=== PATIENT | female | born 1945 | race American Indian/Alaskan Native ===

== ENCOUNTER 2018-08-01 06:36 | Inpatient (IN) | payer MEDICARE, BC ==
[2018-07-29 08:47] VITALS: BMI 30.7
[2018-08-01] MEDS ORDERED: Lidocaine 1% 5ml Abboject ONE (07:19)
[2018-08-01] MEDS ORDERED: Lidocaine 4% (Laryng-O-Jet) Kit MM ONE (07:19)
[2018-08-01] MEDS ORDERED: Neostigmine 1:1000 (1 mg/ml) Inj ONE (07:19)
[2018-08-01] MEDS ORDERED: Propofol 10 mg/ml Inj (20 ML) ONE (07:19)
[2018-08-01] MEDS ORDERED: Midazolam 2 MG/2 ML VIAL ONE (07:19)
[2018-08-01] MEDS ORDERED: Rocuronium 10 mg/ml (5 ml) ONE ×2 (07:19→09:20)
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
[2018-08-01] MEDS ORDERED: Phenylephrine 10 mg/ml Inj ONE (07:23)
[2018-08-01] MEDS ORDERED: Absorbable Gelatin Sponge Size 12-7 ONE (07:32)
[2018-08-01] MEDS ORDERED: Thrombin Topical 5,000 Int Units Spray Kit ONE (07:32)
[2018-08-01] MEDS ORDERED: Bacitracin Ointment 30 GM TUBE ONE (07:32)
--- NOTE | 2018-08-01 07:32 | CP.PCM.CON ---
History of Present Illness - History of Present Illness History of Present Illness: Orthopedic consult: Dr. Zarate Patient is a 73 y/o female who presents for elective R TKA. The patient has had chronic right knee pain for many years that has progressed over the past few months. She has had much difficulties with her daily activities including walking and climbing stairs due to the pain. Her symptoms have been resistant to conservative means with PT, oral medications and intra-articular injections. She denies radiation of pain/numbness/tingling. She does not walk with an assistive aid and lives at home with her daughter and son in a second floor apt. She denies any cardiac/thromboembolic events in the past. She takes ASA 81 mg daily, last dose 2 days ago. She denies CP/SOB/N/V/D/fever/dysuria/melena. Review of Systems - Review of Systems All systems: reviewed and no additional remarkable complaints except Review of Systems: as per HPI Past Patient History - Past Medical History & Family History Past Medical History?: Yes Past Family History: Reviewed and not pertinent - Past Social History Smoking Status: chews tobacco occassionally Alcohol: None Drugs: Denies - CARDIAC Hx Cardiac Disorders: Yes Hx Hypercholesterolemia: Yes Hx Hypertension: Yes - PULMONARY Hx Asthma: Yes Hx Chronic Obstructive Pulmonary Disease (COPD): Yes - NEUROLOGICAL Hx Neurological Disorder: No - HEENT Hx HEENT Problems: Yes Other/Comment: left eye bleeding? - RENAL Hx Chronic Kidney Disease: No - ENDOCRINE/METABOLIC Hx Endocrine Disorders: No - HEMATOLOGICAL/ONCOLOGICAL Hx Blood Disorders: Yes Hx Blood Transfusions: Yes Hx Blood Transfusion Reaction: No - INTEGUMENTARY Hx Dermatological Problems: No - MUSCULOSKELETAL/RHEUMATOLOGICAL Hx Musculoskeletal Disorders: Yes Hx Arthritis: Yes Hx Back Pain: Yes - GASTROINTESTINAL Hx Gastrointestinal Disorders: Yes Hx Gastroesophageal Reflux: Yes (heartburn) - GENITOURINARY/GYNECOLOGICAL Hx Genitourinary Disorders: No - PSYCHIATRIC Hx Psychophysiologic Disorder: No - SURGICAL HISTORY Hx Surgeries: Yes Hx Hysterectomy: Yes (partial 1967) - ANESTHESIA Hx Anesthesia: Yes Hx Anesthesia Reactions: No Hx Malignant Hyperthermia: No Has any member of the family had a problem w/ anesthesia?: No Meds Allergies/Adverse Reactions: Allergies Allergy/AdvReac Type Severity Reaction Status Date / Time No Known Allergies Allergy Verified 08/01/18 06:56 - Medications Medications: as per Med rec Physical Exam - Constitutional Appears: Well, No Acute Distress - Head Exam Head Exam: ATRAUMATIC, NORMOCEPHALIC - Eye Exam Eye Exam: EOMI, Normal appearance, PERRL - ENT Exam ENT Exam: Mucous Membranes Moist - Respiratory Exam Respiratory Exam: NORMAL BREATHING PATTERN - Extremities Exam Additional comments: R knee: no lesions/masses/erythema mild swelling, tenderness anteriorly sensation intact SP/DP/TN motor intact EHL/FHL/TA/G pedal pulses intact calves soft NT Results - Vital Signs Recent Vital Signs: Last Vital Signs Temp 98.7 F 08/01/18 07:06 Pulse 86 08/01/18 07:06 Resp 18 08/01/18 07:06 BP 125/69 08/01/18 07:06 Pulse Ox 100 08/01/18 07:06 Assessment & Plan (1) Osteoarthritis of right knee Assessment and Plan: -OR today for R TKA -Risks/benefits/alternatives d/w patient who understands and agrees to proceed w ith procedure above -NPO -above d/w Dr. Zarate in agreement Status: Acute
[2018-08-01] MEDS ORDERED: Tranexamic Acid 1,000 MG in Sodium Chloride 0.9% 100 ML IVPB ONE (07:34)
[2018-08-01] MEDS ORDERED: Succinylcholine 200 mg/10 ml Inj IV ONE (07:35)
[2018-08-01] MEDS ORDERED: Bupivacaine 0.25%-Epinephrine 1:200,000 (30 ml) Inj ONE ×2 (07:41→13:28)
[2018-08-01] MEDS ORDERED: ceFAZolin IV 1 gm in Dextrose 1 GM/50 ML BAG IVPB ONE ×2 (07:42→07:44)
[2018-08-01] MEDS ORDERED: Lactated Ringer's 1,000 ML IV ONE ×2 (07:51→11:30)
[2018-08-01 07:55] LABS: BASO % 0.8 % (0.0-2.0); EOS # 0.3 K/uL (0.0-0.7); EOS % 4.9 % (0.0-4.0); HEMOGLOBIN 10.8 g/dL (12.0-16.0); LYMPH # 1.2 K/uL (1.0-4.3); LYMPH % 19.5 % (20.0-40.0); MEAN CELL VOLUME 74.5 fl (81.0-99.0); MEAN CORPUSCULAR HEMOGLOBIN 23.6 pg (27.0-31.0); MEAN CORPUSCULAR HGB CONC 31.7 g/dL (33.0-37.0); MEAN PLATELET VOLUME 8.1 fl (7.2-11.7); MONO # 0.6 K/uL (0.0-0.8); MONO % 9.1 % (0.0-10.0); NEUT # 4.1 K/uL (1.8-7.0); NEUT % 65.7 % (50.0-75.0); NRBC % 0.1 % (0.0-0.0); RBC 4.57 Mil/uL (3.80-5.20); WHITE BLOOD COUNT 6.3 K/uL (4.8-10.8)
[2018-08-01 08:23] LABS: SQUAMOUS EPITHIAL 7 /hpf (0-5); URINE BACTERIA RARE (<OCC); URINE BILIRUBIN NEGATIVE (NEGATIVE); URINE BLOOD NEGATIVE (NEGATIVE); URINE CLARITY SLIGHTY-CLOUDY (Clear); URINE COLOR YELLOW (YELLOW); URINE GLUCOSE (UA) NEG (NEGATIVE); URINE HYALINE CAST 0-2 /hpf (0-2); URINE LEUKOCYTE ESTERASE LARGE Leu/uL (Negative); URINE PROTEIN 30 mg/dL (NEGATIVE); URINE UROBILINOGEN 0.2-1.0 mg/dL (0.2-1.0)
[2018-08-01] MEDS ORDERED: Sodium Chloride 0.9% 1,000 ML IV ONE (09:10)
[2018-08-01] MEDS ORDERED: cefTRIAXone (Rocephin) 1 gm Inj ONE (09:14)
[2018-08-01] MEDS ORDERED: Tranexamic Acid 100 mg/ml IV ONE (09:50)
[2018-08-01] MEDS ORDERED: Sevoflurane - Inhalation Anesthetic Liq (250 ml) ONE (11:38)
[2018-08-01] MEDS ORDERED: Bisacodyl 5mg EC Tab PO PRN (11:51)
[2018-08-01] MEDS ORDERED: Sodium Chloride 0.9% 1,000 ML IV SCH (12:00)
[2018-08-01] MEDS ORDERED: Ergocalciferol 50,000 Intl Units Cap PO SCH (12:00)
[2018-08-01] MEDS ORDERED: Albuterol-Ipratrop 3 mg / 0.5 (3 ml) UD INH PRN (12:01)
[2018-08-01] MEDS: HYDROmorphone 0.5 mg/0.5 ml ISec IVP PRN ×5 (12:51→22:47)
[2018-08-01] MEDS ORDERED: HYDROmorphone 0.5 mg/0.5 ml ISec ONE ×2 (12:54→13:07)
[2018-08-01] MEDS ORDERED: Lactated Ringer's 1,000 ML IV SCH (13:00)
--- NOTE | 2018-08-01 13:01 | PCM.ANESB2 ---
Popliteal Nerve Block - Popliteal Nerve Block Date of Procedure: 08/01/18 Anesthesiologist: dr. Bourgeois Pre-Procedure Diagnosis: S/P right total knee replacement Post-Procedure Diagnosis: S/P right total knee replacement Procedure Performed: Popliteal Nerve Block Right - Procedure Popliteal Nerve Block: This procedure was explained to the patient that it is for post-operative pain m anagement. Consent was obtained after a thorough discussion with the patient regarding the benefits and possible complications of local anesthetic block of the sciatic nerve at the popliteal level. The patient was brought to the operating room and standard monitors are applied. Time-out was held with the circulating nurse to confirm the correct surgery and the appropriate block. After the surgery while still under general anesthesia, patient's operative leg was gently raised and supported and the groove in between the biceps femoris and vastus lateralis muscles was carefully palpated. The skin approximately 8cm above the popliteal crease was then marked. The ultrasound transducer was then applied to the posterior thigh below the gluteal crease the sciatic nerve was visualized. After identification, the lateral portion of the thigh was prepped with Chloraprep solution. At this point, a # 21 gauge Stimuplex insulated 4 inch needle was inserted into pre-marked area and advanced in a perpendicular direction. The needle was inserted above the ultrasound transducer in-plane towards the sciatic nerve in a [id number] direction. Needle advancement was performed carefully under direct ultrasound visualization. Nerve stimulator was used and dorsiflexion of the right foot was elicited at a current of 0.3 MA. After repeated negative aspiration, 5cc of 0.25% bupivacaine with 1:200,000 epinephrine was injected and this was flowed with 20cc of 0.25% bupivacaine with 1:200,000 epinephrine. Under ultrasound guidance the local anesthetics were observed surrounding sciatic nerve . The needle was removed intact and sterile dressing was applied. The patient tolerated the popliteal nerve block well with stable vital signs and was subsequently awaken from anesthesia. Then transported to PACU.
--- NOTE | 2018-08-01 13:05 | PCM.ANESB3 ---
Femoral Nerve Block - Femoral Nerve Block Date of Procedure: 08/01/18 Anesthesiologist: Dr. Bourgeois Pre-Procedure Diagnosis: S/P right femoral nerve block Post-Procedure Diagnosis: S/P right femoral nerve block Procedure Performed: Femoral Nerve Block Right - Procedure Femoral Nerve Block: The procedure was explained to the patient that it is for the post-operative pain management. Consent was obtained after a thorough discussion with the patient regarding the benefits and possible complications of local anesthetic block of the femoral nerve at the inguinal crease area. The patient was brought to the operating room and standard monitors were applied. Time-out was held with the circulating nurse to confirm the correct surgery and the appropriate block. After the surgery while still under general anesthesia, patient was placed in supine position with fully extended lower extremities and the right groin exposed. The femoral artery was then carefully palpated. The ultrasound transducer was then applied to this area in the transverse plane and the femoral nerve was visualized lateral to the femoral artery and underneath the fascia iliaca. After thorough identification, the inguinal crease area was prepped with Chloraprep. At this point, a #22 gauge Stimuplex 2-inch needle was inserted immediately lateral to the femoral artery pulse at the inguinal crease and advanced perpendicularly. The needle was inserted to the ultrasound transducer in-plane towards the femoral nerve in a [id number] direction. Needle advancement was performed carefully under direct ultrasound visualization. Nerve stimulator was used and twitch of the quadriceps muscle was obtained at current of 0.3MA. After negative aspiration, 5cc of 0.25% bupivacaine with 1:200,000 epinephrine was injected and this was followed with 20cc of 0.25% bupivacaine with 1:200,000 epinephrine. Under ultrasound guidance the local anesthetics were observed spreading below fascia iliaca and around the femoral nerve. The needle was removed intact and sterile dressing was applied. The patient had stable vital signs, was conscious and in no apparent distress. The patient tolerated the femoral nerve block well with stable vital signs and was awaken from anesthesia. Then transported to PACU
--- NOTE | 2018-08-01 13:46 | RAD ---
Date of service: 08/01/2018 PROCEDURE: Right Knee Radiographs. HISTORY: Status post right TKA COMPARISON: None. FINDINGS: BONES: Right-sided total knee arthroplasty with expected postoperative changes seen in the adjacent soft tissues consisting of edema and subcutaneous air.. In situ drainage catheters with surrounding JOINTS: As above. JOINT EFFUSION: Small joint effusion OTHER FINDINGS: None. IMPRESSION: Right-sided total knee arthroplasty with expected the postoperative changes seen in the adjacent soft tissues consisting of edema and subcutaneous air.. In situ drainage catheters with surrounding
--- NOTE | 2018-08-01 15:44 | PCM.SURG1 ---
Surgeon's Initial Post Op Note - Surgeon's Notes Surgeon: Elliot Tube Cleaner: YANELIS De Santiago Type of Anesthesia: General Endo, Block Regional Anesthesia Administered By: Dr Bourgeois Pre-Operative Diagnosis: tricompartmental O/A L knee Operative Findings: as above- tricomaprtmentalO/A L knee. Repair patella ligament. posterior capsular contracture. lateral patella retinacular contracture. anterior and posterior synbovectomy Post-Operative Diagnosis: as above Operation Performed: L TKR. repair/reinforcment patella ligament. posterior capsular release. lateral patella release. anterior and posterior synovectomy. computer navigation Specimen/Specimens Removed: bone/cartilage/synovium Estimated Blood Loss: EBL {In ML}: 75 Blood Products Given: N/A Drains Used: Hemovac Post-Op Condition: Fair Date of Surgery/Procedure: 08/01/18 Time of Surgery/Procedure: 10:05 (time in room/anetshyeisa indcution time 0950)
[2018-08-01] MEDS: ceFAZolin 2 GM in Sodium Chloride 0.9% 100 ML IVPB SCH (17:41)
[2018-08-01 19:26] LABS: HEMOGLOBIN 10.4 g/dL (12.0-16.0); MEAN CELL VOLUME 75.2 fl (81.0-99.0); MEAN CORPUSCULAR HEMOGLOBIN 24.4 pg (27.0-31.0); MEAN CORPUSCULAR HGB CONC 32.4 g/dL (33.0-37.0); RBC 4.27 Mil/uL (3.80-5.20); WHITE BLOOD COUNT 13.7 K/uL (4.8-10.8)
[2018-08-01] MEDS: Latanoprost 0.005% Opht SOUTION OU SCH (23:55)
[2018-08-02] MEDS: ceFAZolin 2 GM in Sodium Chloride 0.9% 100 ML IVPB SCH (00:29)
[2018-08-02] MEDS: HYDROmorphone 0.5 mg/0.5 ml ISec IVP PRN ×2 (02:40→06:36)
[2018-08-02 06:28] LABS: HEMOGLOBIN 9.7 g/dL (12.0-16.0); MEAN CELL VOLUME 74.8 fl (81.0-99.0); MEAN CORPUSCULAR HGB CONC 33.5 g/dL (33.0-37.0); RBC 3.87 Mil/uL (3.80-5.20); RED CELL DISTRIBUTION WIDTH 16.2 % (11.5-14.5); WHITE BLOOD COUNT 10.9 K/uL (4.8-10.8)
[2018-08-02 06:42] LABS: CALCIUM 8.5 mg/dL (8.4-10.2)
[2018-08-02] MEDS ORDERED: Pneumococcal 23-Valent Vaccine IM ONE (07:18)
[2018-08-02] MEDS: oxyCODONE 5 mg Immediate Release Tab PO PRN (08:52)
--- NOTE | 2018-08-02 09:24 | CP.PCM.PN ---
Subjective - Date & Time of Evaluation Date of Evaluation: 08/02/18 Time of Evaluation: 09:21 - Subjective Subjective: Patient states she is having 9/10 pain in her knee. She says she had a lot of pain overnight, and the medication helps but it wears off. Denies CP/SOB/dizziness/numbness/tingling. Objective - Vital Signs/Intake and Output Vital Signs (last 24 hours): Temp Pulse Resp BP Pulse Ox 99 F 95 H 18 145/80 98 08/02/18 08:17 08/02/18 08:17 08/02/18 08:17 08/02/18 09:06 08/02/18 08:17 Intake and Output: 08/02/18 08/02/18 06:59 18:59 Intake Total 400 Output Total 50 Balance 350 - Medications Medications: Current Medications Acetaminophen (Tylenol 325mg Tab) 650 mg PO Q6 [facility] Last Admin: 08/02/18 04:00 Dose: Not Given Albuterol/Ipratropium (Duoneb 3 Mg/0.5 Mg (3 Ml) Ud) 3 ml INH RQ4 PRN PRN Reason: Shortness of Breath Aspirin (Ecotrin) 81 mg PO DAILY [facility] Atorvastatin Calcium (Lipitor) 10 mg PO HS [facility] Bisacodyl (Dulcolax) 10 mg PO HS PRN PRN Reason: Constipation Docusate Sodium (Colace) 100 mg PO BID [facility] Last Admin: 08/01/18 17:41 Dose: 100 mg Enoxaparin Sodium (Lovenox) 40 mg SC Q24H [facility]; Protocol Ergocalciferol (Drisdol 50,000 Intl Units Cap) 1 cap PO QWK [facility] Ferrous Sulfate (Feosol) 325 mg PO BID [facility] Last Admin: 08/02/18 09:07 Dose: 325 mg Furosemide (Lasix) 20 mg PO DAILY [facility] Last Admin: 08/02/18 09:06 Dose: 20 mg Sodium Chloride (Sodium Chloride 0.9%) 1,000 mls @ 80 mls/hr IV .[id number] [facility] Stop: 08/02/18 12:59 Lactated Ringer's (Lactated Ringer's) 1,000 mls @ 100 mls/hr IV .Q10H [facility] Last Admin: 08/01/18 21:15 Dose: 100 mls/hr Ketorolac Tromethamine (Toradol) 30 mg IVP Q6 [facility] Stop: 08/03/18 10:01 Latanoprost (Xalatan Opht) 1 drop OU HS [facility] Last Admin: 08/01/18 23:55 Dose: 1 drop Losartan Potassium (Cozaar) 50 mg PO DAILY [facility] Montelukast Sodium (Singulair) 10 mg PO DAILY [facility] Ondansetron HCl (Zofran Inj) 4 mg IVP Q6 PRN PRN Reason: Nausea/Vomiting Oxycodone HCl (Oxycodone Immediate Release Tab) 5 mg PO Q4H PRN PRN Reason: Pain, moderate (4-7) Last Admin: 08/02/18 08:52 Dose: 5 mg Pneumococcal Polyvalent Vaccine (Pneumovax 23 Vaccine) 0.5 ml IM .ONCE ONE Stop: 08/02/18 07:19 Spironolactone (Aldactone) 25 mg PO DAILY [facility] Tizanidine HCl (Zanaflex) 4 mg PO BID [facility] Last Admin: 08/01/18 19:37 Dose: 4 mg - Labs Labs: 08/02/18 05:25 08/02/18 05:25 - Extremities Exam Additional comments: RLE: hemovac 80cc overnight, 50cc shift prior. Left intact at this time. +ROM ankle/toes, sensation intact +DP/PT pulses calves soft NT neg homans Assessment and Plan (1) Osteoarthritis of right knee Assessment & Plan: POD#1 s/p right TKR PT/OT VTE proph d/c planning d/w Dr. Zarate, agrees with above Status: Acute (2) Acute blood loss anemia Assessment & Plan: acute on chronic s/p 1uPRBC intraop f/u labs in am Status: Acute
--- NOTE | 2018-08-02 09:52 | CP.PCM.PN ---
Subjective - Date & Time of Evaluation Date of Evaluation: 08/02/18 Time of Evaluation: 09:49 - Subjective Subjective: 73 y/o Female with PMHx of Arthritis, Glaucoma, Sleep Apnea, Asthma, COPD, HLD, and HTN was seen and evaluated POD1 elective Right Knee Replacement Surgery today with Dr. Son. Patient seen resting in chair at bedside. Patient tolerating physical therapy with minimal pain at this time. Patient reports she would like to go home and states her son would be at home to help her. Patient denies fever, nausea, vomiting, shortness of breath, abdominal pain, dysuria, polyuria or chest pain at this time. Objective - Vital Signs/Intake and Output Vital Signs (last 24 hours): Temp Pulse Resp BP Pulse Ox 99 F 95 H 18 145/80 98 08/02/18 08:17 08/02/18 08:17 08/02/18 08:17 08/02/18 09:06 08/02/18 08:17 Intake and Output: 08/02/18 08/02/18 06:59 18:59 Intake Total 400 Output Total 50 Balance 350 - Medications Medications: Current Medications Acetaminophen (Tylenol 325mg Tab) 650 mg PO Q6 [facility] Last Admin: 08/02/18 04:00 Dose: Not Given Albuterol/Ipratropium (Duoneb 3 Mg/0.5 Mg (3 Ml) Ud) 3 ml INH RQ4 PRN PRN Reason: Shortness of Breath Aspirin (Ecotrin) 81 mg PO DAILY [facility] Atorvastatin Calcium (Lipitor) 10 mg PO HS [facility] Bisacodyl (Dulcolax) 10 mg PO HS PRN PRN Reason: Constipation Docusate Sodium (Colace) 100 mg PO BID [facility] Last Admin: 08/01/18 17:41 Dose: 100 mg Enoxaparin Sodium (Lovenox) 40 mg SC Q24H [facility]; Protocol Ergocalciferol (Drisdol 50,000 Intl Units Cap) 1 cap PO QWK [facility] Ferrous Sulfate (Feosol) 325 mg PO BID [facility] Last Admin: 08/02/18 09:07 Dose: 325 mg Furosemide (Lasix) 20 mg PO DAILY [facility] Last Admin: 08/02/18 09:06 Dose: 20 mg Sodium Chloride (Sodium Chloride 0.9%) 1,000 mls @ 80 mls/hr IV .[id number] [facility] Stop: 08/02/18 12:59 Lactated Ringer's (Lactated Ringer's) 1,000 mls @ 100 mls/hr IV .Q10H [facility] Last Admin: 08/01/18 21:15 Dose: 100 mls/hr Ketorolac Tromethamine (Toradol) 30 mg IVP Q6 [facility] Stop: 08/03/18 10:01 Latanoprost (Xalatan Opht) 1 drop OU HS [facility] Last Admin: 08/01/18 23:55 Dose: 1 drop Losartan Potassium (Cozaar) 50 mg PO DAILY [facility] Montelukast Sodium (Singulair) 10 mg PO DAILY [facility] Ondansetron HCl (Zofran Inj) 4 mg IVP Q6 PRN PRN Reason: Nausea/Vomiting Oxycodone HCl (Oxycodone Immediate Release Tab) 5 mg PO Q4H PRN PRN Reason: Pain, moderate (4-7) Last Admin: 08/02/18 08:52 Dose: 5 mg Pneumococcal Polyvalent Vaccine (Pneumovax 23 Vaccine) 0.5 ml IM .ONCE ONE Stop: 08/02/18 07:19 Spironolactone (Aldactone) 25 mg PO DAILY [facility] Tizanidine HCl (Zanaflex) 4 mg PO BID [facility] Last Admin: 08/01/18 19:37 Dose: 4 mg - Labs Labs: 08/02/18 05:25 08/02/18 05:25 - Constitutional Appears: Well, Non-toxic, No Acute Distress - Head Exam Head Exam: ATRAUMATIC, NORMOCEPHALIC - Eye Exam Eye Exam: Normal appearance - ENT Exam ENT Exam: Mucous Membranes Moist - Neck Exam Neck Exam: Full ROM. absent: Lymphadenopathy - Respiratory Exam Respiratory Exam: Clear to Ausculation Bilateral, NORMAL BREATHING PATTERN. absent: Rales, Rhonchi, Wheezes - Cardiovascular Exam Cardiovascular Exam: REGULAR RHYTHM, +S1, +S2 - GI/Abdominal Exam GI & Abdominal Exam: Soft, Normal Bowel Sounds. absent: Firm, Guarding, Rigid - Extremities Exam Extremities Exam: Normal Capillary Refill Additional comments: RLE: hemovac intact, +ROM ankle/toes, sensation intact +DP/PT pulses calves soft NT neg homans - Neurological Exam Neurological Exam: Alert, Awake, Oriented x3 - Psychiatric Exam Psychiatric exam: Normal Affect, Normal Mood - Skin Skin Exam: Normal Color Assessment and Plan - Assessment and Plan (Free Text) Assessment: 73 y/o Female with PMHx of Arthritis, Glaucoma, Sleep Apnea, Asthma, COPD, HLD, and HTN was seen and evaluated POD1 elective Right Knee Replacement Surgery today with Dr. Son. Plan: Elective Total RIGHT knee replacement - acute, minimal pain, afebrile overnight - Pain management as per Orthopedics - D/C Dilaudid [employer]EL[employer] pump at this time - Completed 3 doses of Ancef (Surg Prophylaxis) - Physical Therapy- pending recommendation - continue spirometry - hemovac intact at this time Arthritis - chronic - no home meds Glaucoma - chronic, controlled - continue home meds, Latanoprost COPD/Sleep Apnea - stable Asthma - chronic, controlled - Continue home meds, Albuterol Inhaler, Montelukast Hyperlipidemia - chronic, controlled - continue home meds, Simvastatin Hypertension - chronic, controlled - continue home meds, ASA, Losartan, Spironolactone DVT Prophylaxis - Lovenox 40
--- NOTE | 2018-08-02 10:47 | CP.PCM.CON ---
History of Present Illness - History of Present Illness History of Present Illness: I WAS ASKED TO SEE AND FOLLOW THIS PATIENT BY DR NG. SHE IS A 73 YEAR OLD FEMALE WHO WAS ADMITTED YESTERDAY AND UNDERWENT A RIGHT TKR FOR OA THAT FAILED CONSERVATIVE TREATMENT. SHE ALSO HAS A HISTORY OF HYPERTENSION, HYPERLIPIDEMIA AND COPD. SHE DENIES ANY HISTORY OF CAD. SHE DID WELL WITH SURGERY AND HER ONLY COMPLAINT NOW IS SURGICAL SITE PAIN. Past Patient History - Past Medical History & Family History Past Medical History?: Yes Past Family History: Reviewed and not pertinent - Past Social History Smoking Status: chews tobacco occassionally Alcohol: None Drugs: Denies - CARDIAC Hx Cardiac Disorders: Yes Hx Hypercholesterolemia: Yes Hx Hypertension: Yes - PULMONARY Hx Asthma: Yes Hx Chronic Obstructive Pulmonary Disease (COPD): Yes - NEUROLOGICAL Hx Neurological Disorder: No - HEENT Hx HEENT Problems: Yes Other/Comment: left eye bleeding? - RENAL Hx Chronic Kidney Disease: No - ENDOCRINE/METABOLIC Hx Endocrine Disorders: No - HEMATOLOGICAL/ONCOLOGICAL Hx Blood Disorders: Yes Hx Blood Transfusions: Yes Hx Blood Transfusion Reaction: No - INTEGUMENTARY Hx Dermatological Problems: No - MUSCULOSKELETAL/RHEUMATOLOGICAL Hx Musculoskeletal Disorders: Yes Hx Arthritis: Yes Hx Back Pain: Yes - GASTROINTESTINAL Hx Gastrointestinal Disorders: Yes Hx Gastroesophageal Reflux: Yes (heartburn) - GENITOURINARY/GYNECOLOGICAL Hx Genitourinary Disorders: No - PSYCHIATRIC Hx Psychophysiologic Disorder: No - SURGICAL HISTORY Hx Surgeries: Yes Hx Hysterectomy: Yes (partial 1967) - ANESTHESIA Hx Anesthesia: Yes Hx Anesthesia Reactions: No Hx Malignant Hyperthermia: No Has any member of the family had a problem w/ anesthesia?: No Meds Allergies/Adverse Reactions: Allergies Allergy/AdvReac Type Severity Reaction Status Date / Time No Known Allergies Allergy Verified 08/01/18 06:56 - Medications Medications: Current Medications Acetaminophen (Tylenol 325mg Tab) 650 mg PO Q6 PRN PRN Reason: Fever >100.4 F Albuterol/Ipratropium (Duoneb 3 Mg/0.5 Mg (3 Ml) Ud) 3 ml INH RQ4 PRN PRN Reason: Shortness of Breath Aspirin (Ecotrin) 81 mg PO DAILY [facility] Atorvastatin Calcium (Lipitor) 10 mg PO HS [facility] Bisacodyl (Dulcolax) 10 mg PO HS PRN PRN Reason: Constipation Docusate Sodium (Colace) 100 mg PO BID [facility] Last Admin: 08/01/18 17:41 Dose: 100 mg Enoxaparin Sodium (Lovenox) 40 mg SC Q24H [facility]; Protocol Ergocalciferol (Drisdol 50,000 Intl Units Cap) 1 cap PO QWK [facility] Ferrous Sulfate (Feosol) 325 mg PO BID [facility] Last Admin: 08/02/18 09:07 Dose: 325 mg Furosemide (Lasix) 20 mg PO DAILY [facility] Last Admin: 08/02/18 09:06 Dose: 20 mg Sodium Chloride (Sodium Chloride 0.9%) 1,000 mls @ 80 mls/hr IV .[id number] [facility] Stop: 08/02/18 12:59 Lactated Ringer's (Lactated Ringer's) 1,000 mls @ 100 mls/hr IV .Q10H [facility] Last Admin: 08/01/18 21:15 Dose: 100 mls/hr Ketorolac Tromethamine (Toradol) 30 mg IVP Q6 [facility] Stop: 08/03/18 10:01 Latanoprost (Xalatan Opht) 1 drop OU HS [facility] Last Admin: 08/01/18 23:55 Dose: 1 drop Losartan Potassium (Cozaar) 50 mg PO DAILY [facility] Montelukast Sodium (Singulair) 10 mg PO DAILY [facility] Ondansetron HCl (Zofran Inj) 4 mg IVP Q6 PRN PRN Reason: Nausea/Vomiting Oxycodone HCl (Oxycodone Immediate Release Tab) 5 mg PO Q4H PRN PRN Reason: Pain, moderate (4-7) Last Admin: 08/02/18 08:52 Dose: 5 mg Spironolactone (Aldactone) 25 mg PO DAILY [facility] Tizanidine HCl (Zanaflex) 4 mg PO BID [facility] Last Admin: 08/01/18 19:37 Dose: 4 mg Physical Exam - Respiratory Exam Respiratory Exam: Clear to Auscultation Bilateral - Cardiovascular Exam Cardiovascular Exam: REGULAR RHYTHM, +S1, +S2 - Extremities Exam Additional comments: RIGHT LE WITH SURGICAL DRESSINGS LLE WITHOUT ANY EDEMA - Additional Findings Additional findings: PAT EKG WITH NST AT ECHO WITH LVEF OF 60% OR NOTES REVIEWED Results - Vital Signs Recent Vital Signs: Last Vital Signs Temp 99 F 08/02/18 08:17 Pulse 95 H 08/02/18 08:17 Resp 18 08/02/18 08:17 BP 145/80 08/02/18 09:06 Pulse Ox 98 08/02/18 08:17 - Labs Result Diagrams: 08/02/18 05:25 08/02/18 05:25 Labs: Laboratory Results - last 24 hr 08/01/18 08/01/18 08/02/18 07:20 18:14 05:25 WBC 13.7 H D 10.9 H RBC 4.27 3.87 Hgb 10.4 L 9.7 L Hct 32.1 L 29.0 L MCV 75.2 L 74.8 L MCH 24.4 L 25.0 L MCHC 32.4 L 33.5 RDW 16.0 H 16.2 H Plt Count 250 211 Sodium Potassium Chloride Carbon Dioxide Anion Gap BUN Creatinine Est GFR ( Amer) Est GFR (Non-Af Amer) Random Glucose Calcium Blood Type O POSITIVE Antibody Screen Negative Crossmatch See Detail BBK History Checked No verified bt 08/02/18 05:25 WBC RBC Hgb Hct MCV MCH MCHC RDW Plt Count Sodium 137 Potassium 3.7 Chloride 101 Carbon Dioxide 28 Anion Gap 12 BUN 20 H Creatinine 1.1 Est GFR ( Amer) 59 Est GFR (Non-Af Amer) 49 Random Glucose 130 H Calcium 8.5 Blood Type Antibody Screen Crossmatch BBK History Checked Assessment & Plan - Assessment and Plan (Free Text) Plan: CONTINUE LOSARTAN, ALDACTONE, ASPIRIN, LOVENOX, ATORVASTATIN, FUROSEMIDE AND COPD MEDS
--- NOTE | 2018-08-02 11:30 | PQF ---
PROVIDER RESPONSE TEXT: Provider was unable to determine a response for this query. REVIEWER QUERY TEXT: Asthma Specificity and Type Asthma chronic is documented in the Medical Record. Please specify the type and severity of asthma i f known. Such as: -- Mild intermittent -- Mild persistent -- Moderate persistent -- Severe persistent -- Exercise induced bronchospasm -- Cough variant asthma -- Other, please specify -- Unable to determine The patient's Clinical Indicators include: History of Asthma, COPD and Sleep Apnea. Admitted for elective Right TKR. Medication: Ethan Frankel Peak flow, Incentive Spirometry Query created by: Antonina Guallpa on 08/02/2018 6:50 AM Electronically signed by: Ean Agosto 08/02/2018 11:27 AM
--- NOTE | 2018-08-02 13:01 | OP ---
PROCEDURE DATE: 08/01/2018 PREOPERATIVE DIAGNOSIS: Severe tricompartmental osteoarthritis of the right knee with deformity. POSTOPERATIVE DIAGNOSIS: Severe tricompartmental osteoarthritis of the right knee with deformity. OPERATIVE FINDINGS: 1. Severe tricompartmental osteoarthritis of the knee, most pronounced medially. 2. Severe synovitis, anterior and posterior. 3. Posterior capsular contracture. 4. Lateral patellar retinacular contracture. OPERATIVE PROCEDURE: 1. Right total knee replacement arthroplasty with computer navigation. 2. Posterior capsular release. 3. Lateral patellar retinacular release. 4. Anterior and posterior synovectomy. 5. Computer navigation. SURGEON: Catracho Zarate MD. MARKETING PROGRAM COORDINATOR: NANDO Beckford, certified registered nursing assistant shift supervisor. SECOND MEDICAL RECORD SPECIALIST: Miller Santos PA-C. TYPE OF ANESTHESIA: General endotracheal and regional anesthesia. ANESTHESIA ADMINISTERED BY: Bg Bourgeois MD. COMPLICATIONS: No complications. DRAINS: One Hemovac drain. OPERATIVE BLOOD LOSS: 75 mL. OPERATIVE INDICATION: Radha Orr is a referral from Dr. Clemente Dos Santos who is well known to my practice, presents as a 73-year-old woman with severe osteoarthritis of the right knee, which has interfered with her walking, sleeping tolerance, and has developed a gait abnormality. The patient has been refractory to conservative approach consisting of intra-articular injection, ice, anti-inflammatory medication, weight loss, and activity modification. The possibility of mechanical failure, infection, thromboembolic disease, possibility of secondary or tertiary surgery discussed. Possibility of nerve injury, possibility of stiffness is discussed. The patient can no longer withstand the discomfort and in fact demands the operative procedure. DESCRIPTION OF PROCEDURE: After having obtained informed consent in the above fashion, after having identified side, site and procedure and a critical pause/time-out, after the satisfactory induction of the anesthetic, the patient identified as Radha Orr in the supine position with all bony prominences well-padded. The right lower extremity was prepped and free draped in the usual fashion for lower extremity surgery. The tourniquet had been applied, but was not yet inflated. After exsanguinating the limb using a 6-inch Esmarch bandage, tourniquet which had been applied was inflated to 350 mmHg. A 6-inch straight midline Insall approach was described. Skin incision was carried down through the skin and subcutaneous tissue. At the level of the prepatellar bursa, medial and lateral flaps were carefully raised. Medial arthrotomy was performed. The patella was everted. The knee was flexed. Dissection was carried around posteromedially to the direct head of the semimembranosus tendon. Anterior and posterior cruciate ligaments were excised. Medial and lateral meniscectomies were accomplished. A portion of the patellar ligament was elevated. This having been accomplished, the tibia was dislocated anteriorly and the initial osteotomy of the arthroplasty was accomplished on the tibial side. At this point, an anterior and posterior synovectomy was accomplished. The patient was found to have an extremely exuberant and inflammatory synovitis both anteriorly and posteriorly when the tibia was dislocated. Computer navigation commenced. At this point, the anterior tibial strut for the OrthAlign device was placed on the proximal and medial aspect of the tibia. The offset, defined by the posterior aspect of the anterior cruciate ligament insertion to the tibial table was measured. The sensor was applied. The accelerometer was applied, and at this point in time, computer navigation commences. The offset was measured and registered on the device. Medial malleolus was registered, lateral malleolus was registered, varus-valgus was set to 0 degrees on the mechanical axis, posterior slope set to 3 degrees. The depth was set to 12 mm below the more preserved side, there was found to be a defect medially. Tibial osteotomy was accomplished. The portion of the iliotibial band was released. The tibial osteotomy bone was removed. A portion of the iliotibial band insertion into the lateral aspect of Gerdy's tubercle was released. At this point in time, notch osteophytes and border osteophytes were debrided on the femur. The tibial plateau was replaced below the femoral condyles. The guide pin was placed above the intercondylar notch and again computer navigation was used to navigate the distal femoral cut. The accelerometer was applied. The sensor was applied, and at this point in time, computer navigation via accelerometer was again accomplished in terms of the overall alignment of the arthroplasty. With circumduction, the hip center was identified. The distal cut was set to 0 degrees varus-valgus, 0.5 degrees of flexion. The distal cut was accomplished at 10 mm, it was found to be acceptable. Anterior and posterior sizing is for a #4 femoral component. The #4 block was placed across the epicondylar axis. Anterior and posterior osteotomies were accomplished. Chamfer cuts were accomplished as well. There was found to be evidence of a posterior capsular contracture and preoperatively the patient was short of femoral extension and this was significant. The lamina veterinary medicine teacher was placed. The posterior capsular contracture was released. The posterior capsule was elevated from the posterior aspect of the femur. Rotational attitude having been found to be acceptable. The femoral trial was placed. At this point in time, the proximal tibia was prepared, guidance rotation of the tibial component of the lateral aspect of tibial condyle, mid malleolar axis and the central third of the tibial tuberosity. This having been accomplished, the proximal tibia was prepared. Trialing was accomplished with a 16 mm polyethylene. Flexion/extension gap was found to be excellent and balanced. Using a bur, osteophytes were debrided from the intercondylar notch. Great care was taken to protect neurocirculatory structures. At this point in time with the knee in extension, a lateral patellar retinacular release was accomplished. Patella girth was found to be 30 mm. Freehand patellar osteotomy was accomplished with the oscillating saw and the patella was measured for the appropriate size patellar button. The trials were placed. The patellar trial was placed. The flexion/extension balance is excellent. The patellar balance was excellent. The wound was thoroughly irrigated. The femur, tibia and patella were prepared, and at this point in time, the #4 cemented femoral component was applied. The #3 cemented tibial tray, 16 mm polyethylene ultracongruent insert and the appropriate size patella was cemented. Again, flexion/extension balance was found to be excellent. The wound was thoroughly irrigated. Hemostasis was controlled with the Aquamantys. The tourniquet is deflated. Closures in layers with #1 FiberWire and #1 Vicryl followed by 0 Vicryl, 2-0 Vicryl and brandi for skin over an 8th-inch suction Hemovac drain. Clemente Orr compression dressing and knee immobilizers applied. The patient was transferred from the operating table to the stretcher having tolerated the procedure well. The operative goal could not have been reached without the assistantship of the certified registered nursing assistant shift supervisor and the PA. Catracho Zarate MD
[2018-08-02] MEDS: Enoxaparin 40 mg Syringe SC SCH (16:31)
[2018-08-02] MEDS: Latanoprost 0.005% Opht SOUTION OU SCH (21:06)
[2018-08-03 08:25] VITALS: TEMP 98.5
--- NOTE | 2018-08-03 11:35 | CP.PCM.DIS ---
Provider - Provider Date of Admission: 08/01/18 09:51 Attending physician: Ean Agosto MD Primary care physician: Clemente Webster Consults: 08/01/18 11:51 Case Management Referral Routine Comment: Physician Instructions: Reason For Exam: Reason for Referral: Discharge Planning 08/01/18 11:54 Physician Consult Routine Comment: Consulting Provider: Catracho Zarate III Consulting Physician: Catracho Zarate III Reason for Consult: TKR 08/01/18 16:25 Cardiology Consult Routine Comment: Consulting Provider: Abimael Pimentel Consulting Physician: Abimael Pimentel Reason for Consult: postop cardiac mgmt Time Spent in preparation of Discharge (in minutes): 20 Hospital Course - Lab Results Lab Results: Micro Results 08/02/18 10:28 Urine Random Urine Culture - Final No Growth (<1,000 CFU/ML) Most Recent Lab Values WBC 10.9 K/uL (4.8-10.8) H 08/02/18 05:25 RBC 3.87 Mil/uL (3.80-5.20) 08/02/18 05:25 Hgb 9.7 g/dL (12.0-16.0) L 08/02/18 05:25 Hct 29.0 % (34.0-47.0) L 08/02/18 05:25 MCV 74.8 fl (81.0-99.0) L 08/02/18 05:25 MCH 25.0 pg (27.0-31.0) L 08/02/18 05:25 MCHC 33.5 g/dL (33.0-37.0) 08/02/18 05:25 RDW 16.2 % (11.5-14.5) H 08/02/18 05:25 Plt Count 211 K/uL (130-400) 08/02/18 05:25 MPV 8.1 fl (7.2-11.7) 08/01/18 07:20 Neut % (Auto) 65.7 % (50.0-75.0) 08/01/18 07:20 Lymph % (Auto) 19.5 % (20.0-40.0) L 08/01/18 07:20 [place] % (Auto) 9.1 % (0.0-10.0) 08/01/18 07:20 Eos % (Auto) 4.9 % (0.0-4.0) H 08/01/18 07:20 Baso % (Auto) 0.8 % (0.0-2.0) 08/01/18 07:20 Neut # (Auto) 4.1 K/uL (1.8-7.0) 08/01/18 07:20 Lymph # (Auto) 1.2 K/uL (1.0-4.3) 08/01/18 07:20 [place] # (Auto) 0.6 K/uL (0.0-0.8) 08/01/18 07:20 Eos # (Auto) 0.3 K/uL (0.0-0.7) 08/01/18 07:20 Baso # (Auto) 0.0 K/uL (0.0-0.2) 08/01/18 07:20 Sodium 137 mmol/l (132-148) 08/02/18 05:25 Potassium 3.7 MMOL/L (3.6-5.0) 08/02/18 05:25 Chloride 101 mmol/L (98-107) 08/02/18 05:25 Carbon Dioxide 28 mmol/L (22-30) 08/02/18 05:25 Anion Gap 12 (10-20) 08/02/18 05:25 BUN 20 mg/dl (7-17) H 08/02/18 05:25 Creatinine 1.1 mg/dl (0.7-1.2) 08/02/18 05:25 Est GFR ( Amer) 59 08/02/18 05:25 Est GFR (Non-Af Amer) 49 08/02/18 05:25 Random Glucose 130 mg/dL (65-105) H 08/02/18 05:25 Calcium 8.5 mg/dL (8.4-10.2) 08/02/18 05:25 25-OH Vitamin D Total 21.2 NG/ML (30.0-100.0) L 08/02/18 05:25 Urine Color Yellow (YELLOW) 08/01/18 07:20 Urine Clarity Slighty-cloudy (Clear) 08/01/18 07:20 Urine pH 5.0 (5.0-8.0) 08/01/18 07:20 Ur Specific [place] 1.026 (1.003-1.030) 08/01/18 07:20 Urine Protein 30 mg/dL (NEGATIVE) 08/01/18 07:20 Urine Glucose (UA) Neg mg/dL (NEGATIVE) 08/01/18 07:20 Urine Ketones Negative mg/dL (NEGATIVE) 08/01/18 07:20 Urine Blood Negative (NEGATIVE) 08/01/18 07:20 Urine Nitrate Negative (NEGATIVE) 08/01/18 07:20 Urine Bilirubin Negative (NEGATIVE) 08/01/18 07:20 Urine Urobilinogen 0.2-1.0 mg/dL (0.2-1.0) 08/01/18 07:20 Ur Leukocyte Esterase Large [place]/uL (Negative) 08/01/18 07:20 Urine RBC (Auto) 3 /hpf (0-3) 08/01/18 07:20 Urine Microscopic WBC 4 /hpf (0-5) 08/01/18 07:20 Ur Squamous Epith Cells 7 /hpf (0-5) H 08/01/18 07:20 Urine Bacteria Rare (<OCC) 08/01/18 07:20 Hyaline Casts 0-2 /hpf (0-2) 08/01/18 07:20 Blood Type O POSITIVE 08/01/18 07:20 Blood Type Confirm O POSITIVE 08/01/18 08:40 Antibody Screen Negative 08/01/18 07:20 Crossmatch See Detail 08/01/18 07:20 BBK History Checked No verified bt 08/01/18 07:20 - Hospital Course Hospital Course: 73 y/p female with PMH arthritis, HTN, COPD/ Asthma, dyslipidemia admitted for elective right TKR. Post op patient doing well, pain is controlled and participating with PT. Will discharge patient to TCU for physical therapy Will continue Livenox for DVt prophylaxisis Dx status post right TKR COOD/Asthma HTN Dyslipidemia Vitamin D deficiency Discharge Exam - Head Exam Head Exam: ATRAUMATIC, NORMAL INSPECTION, NORMOCEPHALIC - Eye Exam Eye Exam: EOMI, Normal appearance, PERRL Pupil Exam: NORMAL ACCOMODATION - ENT Exam ENT Exam: Mucous Membranes Moist, Normal Exam - Neck Exam Neck exam: Full Rom, Normal Inspection - Respiratory Exam Respiratory Exam: Clear to PA & Lateral, NORMAL BREATHING PATTERN. absent: Rales, Rhonchi, Wheezes - Cardiovascular Exam Cardiovascular Exam: REGULAR RHYTHM, RRR, +S1, +S2. absent: JVD - GI/Abdominal Exam GI & Abdominal Exam: Normal Bowel Sounds, Soft. absent: Distended, Guarding, Rebound, Tenderness - Rectal Exam Rectal Exam: Deferred - Extremities Exam Extremities exam: full ROM, pedal pulses present Additional comments: right knee dressing with sharifa bandage in place - Back Exam Back exam: NORMAL INSPECTION - Neurological Exam Neurological exam: Alert, CN II-XII Intact, Oriented x3, Reflexes Normal - Psychiatric Exam Psychiatric exam: Normal Affect, Normal Mood - Skin Skin Exam: Dry, Intact, Normal Color, Warm Discharge Plan - Follow Up Plan Condition: GOOD Disposition: HOME/ ROUTINE Patient education suggested?: Yes Referrals: Catracho Zarate III, MD [Staff Provider] -
[2018-08-03] MEDS: Enoxaparin 40 mg Syringe SC SCH (12:20)
[2018-08-03] MEDS: oxyCODONE 5 mg Immediate Release Tab PO PRN (12:51)
[2018-08-03 16:19] VITALS: BP 100/62; PULSE 86; RESP 18; O2SAT 100
== END 2018-08-03 16:39 | DRG 470 ==
LOC: H.OPSURG 06:36 → H.MEDSURG1 09:51
PROVIDERS: ADMIT Hospitalist; ATTEND Hospitalist
PROC: 0SRC0J9 Replacement of Right Knee Joint with Synthetic Substitute, Cemented, Open Approach (ICD-10-PCS; principal; 2018-08-01 08:30)
PROC: 3E0T3BZ Introduction of Anesthetic Agent into Peripheral Nerves and Plexi, Percutaneous Approach (ICD-10-PCS; 2018-08-01 08:30)
PROC: 3E0T3BZ Introduction of Anesthetic Agent into Peripheral Nerves and Plexi, Percutaneous Approach (ICD-10-PCS; 2018-08-01 08:30)
DX: M17.11 Unilateral primary osteoarthritis, right knee (principal); J44.9 Chronic obstructive pulmonary disease, unspecified; G47.30 Sleep apnea, unspecified; E55.9 Vitamin D deficiency, unspecified; E78.00 Pure hypercholesterolemia, unspecified; E78.5 Hyperlipidemia, unspecified; H40.9 Unspecified glaucoma; I10 Essential (primary) hypertension; K21.9 Gastro-esophageal reflux disease without esophagitis; M65.9 Synovitis and tenosynovitis, unspecified; Z79.82 Long term (current) use of aspirin; Z87.891 Personal history of nicotine dependence; Z90.710 Acquired absence of both cervix and uterus; G89.29 Other chronic pain; M54.9 Dorsalgia, unspecified; R63.4 Abnormal weight loss

== ENCOUNTER 2018-08-03 12:32 | Inpatient (IN) | payer OTHER, BC ==
[2018-07-29 08:47] VITALS: BMI 30.7
[2018-08-03 16:55] VITALS: RESP 20
[2018-08-03] MEDS ORDERED: Albuterol HFA 90 mcg/actuation (8 g) IH PRN (16:56)
[2018-08-03] MEDS ORDERED: Bisacodyl 5mg EC Tab PO PRN (16:56)
[2018-08-03] MEDS ORDERED: Ergocalciferol 50,000 Intl Units Cap PO SCH (17:00)
[2018-08-03] MEDS: oxyCODONE 5 mg Immediate Release Tab PO PRN (20:19)
[2018-08-03] MEDS: Latanoprost 0.005% Opht SOUTION OU SCH (21:25)
[2018-08-04] MEDS: oxyCODONE 5 mg Immediate Release Tab PO PRN ×6 (00:29→20:56)
--- NOTE | 2018-08-04 09:09 | CP.PCM.HP ---
<Jennifer Scott - Last Filed: 08/04/18 18:43> History of Present Illness - History of Present Illness History of Present Illness: 73 y/o Female with PMH of Arthritis, Glaucoma, Sleep Apnea, Asthma, COPD, HLD, and HTN who is POD 3 after elective total right knee replacment. After surgery patient was transfered to TCU for rehabilitation. She tolerated the procedure well. Has been participating with PT. Pain is well controlled with Medicine. Denies any chest pain, SOB, N/V/D Allergies: NKDFA Medication: see med reconciliation PMH: as mentioned above PSH: Hysterectomy at the age of 21 Social: smoking history, quit 30 years ago, social ETOH use PMD: Dr. Clemente Webster MD Spreading Machine Operator: Dr. Drea Vasquez MD Contact: [employer] [phone] Present on Admission - Present on Admission Any Indicators Present on Admission: Yes History Surgical Site Infection Following: Orthopedic Procedures (right knee replacment POD3) Past Patient History - Past Medical History & Family History Past Medical History?: Yes - Past Social History Smoking Status: Former Smoker - CARDIAC Hx Cardiac Disorders: Yes Hx Hypercholesterolemia: Yes Hx Hypertension: Yes - PULMONARY Hx Asthma: Yes Hx Chronic Obstructive Pulmonary Disease (COPD): Yes - NEUROLOGICAL Hx Neurological Disorder: No - HEENT Hx HEENT Problems: Yes Other/Comment: left eye bleeding? - RENAL Hx Chronic Kidney Disease: No - ENDOCRINE/METABOLIC Hx Endocrine Disorders: No - HEMATOLOGICAL/ONCOLOGICAL Hx Blood Disorders: Yes Hx Blood Transfusions: Yes Hx Blood Transfusion Reaction: No - INTEGUMENTARY Hx Dermatological Problems: No - MUSCULOSKELETAL/RHEUMATOLOGICAL Hx Musculoskeletal Disorders: Yes Hx Arthritis: Yes Hx Back Pain: Yes Hx Falls: No - GASTROINTESTINAL Hx Gastrointestinal Disorders: Yes Hx Gastroesophageal Reflux: Yes (heartburn) - GENITOURINARY/GYNECOLOGICAL Hx Genitourinary Disorders: No - PSYCHIATRIC Hx Psychophysiologic Disorder: No Hx Substance Use: No - SURGICAL HISTORY Hx Surgeries: Yes Hx Hysterectomy: Yes (partial 1967) Other/Comment: s/p right TKR 08/01/18 - ANESTHESIA Hx Anesthesia: Yes Hx Anesthesia Reactions: No Hx Malignant Hyperthermia: No Meds Allergies/Adverse Reactions: Allergies Allergy/AdvReac Type Severity Reaction Status Date / Time No Known Allergies Allergy Verified 08/03/18 13:54 Physical Exam - Constitutional Appears: No Acute Distress - Head Exam Head Exam: NORMAL INSPECTION - Eye Exam Eye Exam: Normal appearance - ENT Exam ENT Exam: Mucous Membranes Moist - Respiratory Exam Respiratory Exam: Clear to Auscultation Bilateral, NORMAL BREATHING PATTERN. absent: Rhonchi, Wheezes - Cardiovascular Exam Cardiovascular Exam: REGULAR RHYTHM, +S1, +S2 - GI/Abdominal Exam GI & Abdominal Exam: Normal Bowel Sounds, Soft. absent: Tenderness - Extremities Exam Additional comments: Right knee dressing intact C/D/I - Neurological Exam Neurological exam: Alert, CN II-XII Intact, Oriented x3 - Skin Skin Exam: Normal Color, Warm Results - Vital Signs Recent Vital Signs: Last Vital Signs Temp 98.9 F 08/04/18 08:06 Pulse 80 08/04/18 08:06 Resp 20 08/04/18 08:06 BP 106/65 08/04/18 08:06 Pulse Ox 99 08/04/18 08:06 Assessment & Plan - Assessment and Plan (Free Text) Assessment: 73 y/o Female with PMH of Arthritis, Glaucoma, Sleep Apnea, Asthma, COPD, HLD, and HTN who had elective Right Knee Replacement Surgery POD 3. Transferred to TCU for rehabilitation and physical therapy Plan: Elective Total RIGHT knee replacement - Pain management - OT/PT - white count trending down Arthritis - chronic - no home meds Glaucoma - chronic, controlled - continue home meds, Latanoprost COPD/Sleep Apnea - stable Asthma - chronic, controlled - Continue home meds, Albuterol Inhaler, Montelukast Hyperlipidemia - chronic, controlled - continue home meds, Simvastatin Hypertension - chronic, controlled - continue home meds, ASA, Losartan, Spironolactone DVT Prophylaxis - Lovenox 40 SC <Lora,Remy D - Last Filed: 08/04/18 23:13> Results - Vital Signs Recent Vital Signs: Last Vital Signs Temp 99.1 F 08/04/18 19:44 Pulse 71 08/04/18 19:44 Resp 20 08/04/18 19:44 BP 92/57 L 08/04/18 19:44 Pulse Ox 98 08/04/18 19:44 Attending/Attestation - Attestation I have personally seen and examined this patient.: Yes I have fully participated in the care of the patient.: Yes I have reviewed all pertinent clinical information: Yes Notes (Text): 08/04/18 23:12 Patient seen and examined with resident. Case discussed and agreed with assessment and plan of management.
--- NOTE | 2018-08-04 11:07 | CP.PCM.PN ---
Subjective - Date & Time of Evaluation Date of Evaluation: 08/04/18 Time of Evaluation: 10:45 - Subjective Subjective: Pt with minimal ppost op discomfort Objective - Vital Signs/Intake and Output Vital Signs (last 24 hours): Temp Pulse Resp BP Pulse Ox 98.9 F 80 20 106/65 99 08/04/18 09:00 08/04/18 09:01 08/04/18 09:00 08/04/18 09:01 08/04/18 09:00 - Medications Medications: Current Medications Acetaminophen (Tylenol 325mg Tab) 650 mg PO Q6 PRN PRN Reason: Fever >100.4 F Acetaminophen (Tylenol 325mg Tab) 650 mg PO Q6 PRN PRN Reason: Fever >100.4 F Albuterol (Ventolin Hfa 90 Mcg/Actuation (8 G)) 1 puff IH QID PRN PRN Reason: Shortness of Breath Aspirin (Ecotrin) 81 mg PO DAILY [facility] Last Admin: 08/04/18 09:01 Dose: 81 mg Atorvastatin Calcium (Lipitor) 10 mg PO HS [facility] Last Admin: 08/03/18 21:24 Dose: 10 mg Bisacodyl (Dulcolax) 10 mg PO HS PRN PRN Reason: Constipation Docusate Sodium (Colace) 100 mg PO BID [facility] Last Admin: 08/04/18 09:00 Dose: 100 mg Ergocalciferol (Drisdol 50,000 Intl Units Cap) 1 cap PO QWK [facility] Ferrous Sulfate (Feosol) 325 mg PO BID [facility] Last Admin: 08/04/18 09:01 Dose: 325 mg Furosemide (Lasix) 20 mg PO DAILY [facility] Last Admin: 08/04/18 09:00 Dose: 20 mg Latanoprost (Xalatan Opht) 1 drop OU HS [facility] Last Admin: 08/03/18 21:25 Dose: 1 drop Losartan Potassium (Cozaar) 50 mg PO DAILY [facility] Last Admin: 08/04/18 09:01 Dose: 50 mg Montelukast Sodium (Singulair) 10 mg PO DAILY [facility] Last Admin: 08/04/18 09:01 Dose: 10 mg Multivitamins/Minerals (Therapeutic-M Tab) 1 tab PO DAILY [facility] Ondansetron HCl (Zofran Inj) 4 mg IVP Q6 PRN PRN Reason: Nausea/Vomiting Oxycodone HCl (Oxycodone Immediate Release Tab) 5 mg PO Q4H PRN PRN Reason: Pain, moderate (4-7) Last Admin: 08/04/18 09:14 Dose: 5 mg Spironolactone (Aldactone) 25 mg PO DAILY [facility] Last Admin: 08/04/18 08:59 Dose: 25 mg Tizanidine HCl (Zanaflex) 4 mg PO BID [facility] Last Admin: 08/04/18 09:01 Dose: 4 mg - Additional Findings Additional findings: sytemic exam- wnl no evidence for sepsis/no ewvidence for thromboembolic disease Musculoskeltal astance/gait- defrred knee wound benign no evince for sepsis/no evidencew for thromboemolic diease N/V intcat ppost op xrays again reveiwed reveal excellent poostion of construct orthoipedically stable Assessment and Plan - Assessment and Plan (Free Text) Assessment: s/p successful TKRT P full weigth bearing/active, passive ROM- strengthen quads/hamstrings
[2018-08-04] MEDS: Multivitamin With Minerals Tab PO SCH (16:59)
[2018-08-04] MEDS: Enoxaparin 40 mg Syringe SC SCH (19:00)
[2018-08-04] MEDS: Latanoprost 0.005% Opht SOUTION OU SCH (21:00)
[2018-08-05] MEDS: oxyCODONE 5 mg Immediate Release Tab PO PRN ×6 (00:46→22:59)
[2018-08-05] MEDS: Enoxaparin 40 mg Syringe SC SCH (08:39)
[2018-08-05] MEDS: Multivitamin With Minerals Tab PO SCH (08:41)
--- NOTE | 2018-08-05 12:45 | CP.PCM.CON ---
History of Present Illness - History of Present Illness History of Present Illness: 73 year old female with right knee replacement, with history of OA, copd ,htn for TCU for rehab Review of Systems - Musculoskeletal Musculoskeletal: Limited Range of Motion, Muscle Weakness Past Patient History - Past Medical History & Family History Past Medical History?: Yes - Past Social History Smoking Status: Former Smoker - CARDIAC Hx Cardiac Disorders: Yes Hx Hypercholesterolemia: Yes Hx Hypertension: Yes - PULMONARY Hx Asthma: Yes Hx Chronic Obstructive Pulmonary Disease (COPD): Yes - NEUROLOGICAL Hx Neurological Disorder: No - HEENT Hx HEENT Problems: Yes Other/Comment: left eye bleeding? - RENAL Hx Chronic Kidney Disease: No - ENDOCRINE/METABOLIC Hx Endocrine Disorders: No - HEMATOLOGICAL/ONCOLOGICAL Hx Blood Disorders: Yes Hx Blood Transfusions: Yes Hx Blood Transfusion Reaction: No - INTEGUMENTARY Hx Dermatological Problems: No - MUSCULOSKELETAL/RHEUMATOLOGICAL Hx Musculoskeletal Disorders: Yes Hx Arthritis: Yes Hx Back Pain: Yes Hx Falls: No - GASTROINTESTINAL Hx Gastrointestinal Disorders: Yes Hx Gastroesophageal Reflux: Yes (heartburn) - GENITOURINARY/GYNECOLOGICAL Hx Genitourinary Disorders: No - PSYCHIATRIC Hx Psychophysiologic Disorder: No Hx Substance Use: No - SURGICAL HISTORY Hx Surgeries: Yes Hx Hysterectomy: Yes (partial 1967) Other/Comment: s/p right TKR 08/01/18 - ANESTHESIA Hx Anesthesia: Yes Hx Anesthesia Reactions: No Hx Malignant Hyperthermia: No Meds Allergies/Adverse Reactions: Allergies Allergy/AdvReac Type Severity Reaction Status Date / Time No Known Allergies Allergy Verified 08/03/18 13:54 - Medications Medications: Current Medications Acetaminophen (Tylenol 325mg Tab) 650 mg PO Q6 PRN PRN Reason: Fever >100.4 F Acetaminophen (Tylenol 325mg Tab) 650 mg PO Q6 PRN PRN Reason: Fever >100.4 F Albuterol (Ventolin Hfa 90 Mcg/Actuation (8 G)) 1 puff IH QID PRN PRN Reason: Shortness of Breath Aspirin (Ecotrin) 81 mg PO DAILY [facility] Last Admin: 08/05/18 08:41 Dose: 81 mg Atorvastatin Calcium (Lipitor) 10 mg PO HS [facility] Last Admin: 08/04/18 21:00 Dose: 10 mg Bisacodyl (Dulcolax) 10 mg PO HS PRN PRN Reason: Constipation Docusate Sodium (Colace) 100 mg PO BID [facility] Last Admin: 08/05/18 08:40 Dose: 100 mg Enoxaparin Sodium (Lovenox) 40 mg SC DAILY [facility]; Protocol Last Admin: 08/05/18 08:39 Dose: 40 mg Ergocalciferol (Drisdol 50,000 Intl Units Cap) 1 cap PO QWK [facility] Ferrous Sulfate (Feosol) 325 mg PO BID [facility] Last Admin: 08/05/18 08:40 Dose: 325 mg Furosemide (Lasix) 20 mg PO DAILY [facility] Last Admin: 08/05/18 08:41 Dose: 20 mg Latanoprost (Xalatan Opht) 1 drop OU HS [facility] Last Admin: 08/04/18 21:00 Dose: 1 drop Losartan Potassium (Cozaar) 50 mg PO DAILY [facility] Last Admin: 08/05/18 08:40 Dose: 50 mg Montelukast Sodium (Singulair) 10 mg PO DAILY [facility] Last Admin: 08/05/18 08:39 Dose: 10 mg Multivitamins/Minerals (Therapeutic-M Tab) 1 tab PO DAILY [facility] Last Admin: 08/05/18 08:41 Dose: 1 tab Ondansetron HCl (Zofran Inj) 4 mg IVP Q6 PRN PRN Reason: Nausea/Vomiting Oxycodone HCl (Oxycodone Immediate Release Tab) 5 mg PO Q4H PRN PRN Reason: Pain, moderate (4-7) Last Admin: 08/05/18 10:26 Dose: 5 mg Oxycodone HCl (Oxycodone Immediate Release Tab) 10 mg PO Q4 PRN PRN Reason: Pain, severe (8-10) Spironolactone (Aldactone) 25 mg PO DAILY [facility] Last Admin: 08/05/18 08:41 Dose: 25 mg Tizanidine HCl (Zanaflex) 4 mg PO BID [facility] Last Admin: 08/05/18 08:40 Dose: 4 mg Physical Exam - Constitutional Appears: Well - Head Exam Head Exam: ATRAUMATIC, NORMAL INSPECTION, NORMOCEPHALIC - Eye Exam Eye Exam: EOMI, Normal appearance Pupil Exam: NORMAL ACCOMODATION, PERRL - ENT Exam ENT Exam: Mucous Membranes Moist - Neck Exam Neck exam: Positive for: Normal Inspection - Respiratory Exam Respiratory Exam: Clear to Auscultation Bilateral, NORMAL BREATHING PATTERN - Cardiovascular Exam Cardiovascular Exam: REGULAR RHYTHM - GI/Abdominal Exam GI & Abdominal Exam: Normal Bowel Sounds - Rectal Exam Rectal Exam: NORMAL INSPECTION - Exam External exam: NORMAL EXTERNAL EXAM - Extremities Exam Extremities exam: Positive for: normal inspection Additional comments: right leg weakness - Back Exam Back exam: NORMAL INSPECTION - Neurological Exam Neurological exam: Alert, CN II-XII Intact - Psychiatric Exam Psychiatric exam: Normal Affect, Normal Mood - Skin Skin Exam: Dry, Normal Color Results - Vital Signs Recent Vital Signs: Last Vital Signs Temp 98.2 F 08/05/18 09:00 Pulse 75 08/05/18 09:00 Resp 20 08/05/18 09:00 BP 111/57 L 08/05/18 09:00 Pulse Ox 98 08/05/18 09:00 Assessment & Plan (1) Osteoarthritis of right knee Assessment and Plan: RTKR plan for for physical, occupational therapy. Monitor pain and adjust meds as needed. Thank you for the referral Status: Acute
--- NOTE | 2018-08-05 15:26 | CP.PCM.PN ---
Subjective - Date & Time of Evaluation Date of Evaluation: 08/05/18 Time of Evaluation: 15:23 - Subjective Subjective: Patient states she has a lot of pain in her knee, but it is getting better. Denies Cp/SOB/dizziness. Objective - Vital Signs/Intake and Output Vital Signs (last 24 hours): Temp Pulse Resp BP Pulse Ox 98.2 F 75 20 111/57 L 98 08/05/18 09:00 08/05/18 09:00 08/05/18 09:00 08/05/18 09:00 08/05/18 09:00 - Medications Medications: Current Medications Acetaminophen (Tylenol 325mg Tab) 650 mg PO Q6 PRN PRN Reason: Fever >100.4 F Acetaminophen (Tylenol 325mg Tab) 650 mg PO Q6 PRN PRN Reason: Fever >100.4 F Albuterol (Ventolin Hfa 90 Mcg/Actuation (8 G)) 1 puff IH QID PRN PRN Reason: Shortness of Breath Aspirin (Ecotrin) 81 mg PO DAILY [facility] Last Admin: 08/05/18 08:41 Dose: 81 mg Atorvastatin Calcium (Lipitor) 10 mg PO HS [facility] Last Admin: 08/04/18 21:00 Dose: 10 mg Bisacodyl (Dulcolax) 10 mg PO HS PRN PRN Reason: Constipation Docusate Sodium (Colace) 100 mg PO BID [facility] Last Admin: 08/05/18 08:40 Dose: 100 mg Enoxaparin Sodium (Lovenox) 40 mg SC DAILY [facility]; Protocol Last Admin: 08/05/18 08:39 Dose: 40 mg Ergocalciferol (Drisdol 50,000 Intl Units Cap) 1 cap PO QWK [facility] Ferrous Sulfate (Feosol) 325 mg PO BID [facility] Last Admin: 08/05/18 08:40 Dose: 325 mg Furosemide (Lasix) 20 mg PO DAILY [facility] Last Admin: 08/05/18 08:41 Dose: 20 mg Latanoprost (Xalatan Opht) 1 drop OU HS [facility] Last Admin: 08/04/18 21:00 Dose: 1 drop Losartan Potassium (Cozaar) 50 mg PO DAILY [facility] Last Admin: 08/05/18 08:40 Dose: 50 mg Montelukast Sodium (Singulair) 10 mg PO DAILY [facility] Last Admin: 08/05/18 08:39 Dose: 10 mg Multivitamins/Minerals (Therapeutic-M Tab) 1 tab PO DAILY [facility] Last Admin: 08/05/18 08:41 Dose: 1 tab Ondansetron HCl (Zofran Inj) 4 mg IVP Q6 PRN PRN Reason: Nausea/Vomiting Oxycodone HCl (Oxycodone Immediate Release Tab) 5 mg PO Q4H PRN PRN Reason: Pain, moderate (4-7) Last Admin: 08/05/18 10:26 Dose: 5 mg Oxycodone HCl (Oxycodone Immediate Release Tab) 10 mg PO Q4 PRN PRN Reason: Pain, severe (8-10) Last Admin: 08/05/18 13:28 Dose: 10 mg Spironolactone (Aldactone) 25 mg PO DAILY [facility] Last Admin: 08/05/18 08:41 Dose: 25 mg Tizanidine HCl (Zanaflex) 4 mg PO BID [facility] Last Admin: 08/05/18 08:40 Dose: 4 mg - Extremities Exam Additional comments: Right knee: +ROM ankle/toes, sensation intact +DP/PT pulses calves soft NT neg homans Assessment and Plan (1) Osteoarthritis of right knee Assessment & Plan: s/p TKR tolerating PT well cont VTE proph dressing change, dry, minimal swelling, no erythema f/u labs d/w Dr. Zarate, agrees with above Status: Acute (2) Acute blood loss anemia Status: Acute
[2018-08-05 17:08] LABS: HEMOGLOBIN 8.2 g/dL (12.0-16.0); MEAN CELL VOLUME 74.3 fl (81.0-99.0); MEAN CORPUSCULAR HGB CONC 32.3 g/dL (33.0-37.0); RBC 3.4 Mil/uL (3.80-5.20); RED CELL DISTRIBUTION WIDTH 15.5 % (11.5-14.5); WHITE BLOOD COUNT 9.2 K/uL (4.8-10.8)
[2018-08-05 17:17] LABS: BLOOD UREA NITROGEN 19 mg/dl (7-17); GFR NON-AFRICAN AMERICAN 54
[2018-08-05] MEDS: Latanoprost 0.005% Opht SOUTION OU SCH (23:01)
[2018-08-06] MEDS: oxyCODONE 5 mg Immediate Release Tab PO PRN ×4 (04:45→21:53)
[2018-08-06 05:54] LABS: BASO % 0.5 % (0.0-2.0); EOS # 0.3 K/uL (0.0-0.7); EOS % 4.1 % (0.0-4.0); HEMOGLOBIN 7.5 g/dL (12.0-16.0); LYMPH # 1.4 K/uL (1.0-4.3); LYMPH % 16.5 % (20.0-40.0); MEAN CELL VOLUME 74.9 fl (81.0-99.0); MEAN CORPUSCULAR HEMOGLOBIN 24.1 pg (27.0-31.0); MEAN CORPUSCULAR HGB CONC 32.2 g/dL (33.0-37.0); MEAN PLATELET VOLUME 7.9 fl (7.2-11.7); MONO # 0.8 K/uL (0.0-0.8); MONO % 10.3 % (0.0-10.0); NEUT # 5.6 K/uL (1.8-7.0); NEUT % 68.6 % (50.0-75.0); RBC 3.11 Mil/uL (3.80-5.20); RED CELL DISTRIBUTION WIDTH 15.3 % (11.5-14.5); WHITE BLOOD COUNT 8.2 K/uL (4.8-10.8)
[2018-08-06] MEDS: Enoxaparin 40 mg Syringe SC SCH (08:45)
[2018-08-06] MEDS: Multivitamin With Minerals Tab PO SCH (08:46)
--- NOTE | 2018-08-06 10:15 | CP.PCM.PN ---
Subjective - Date & Time of Evaluation Date of Evaluation: 08/06/18 Time of Evaluation: 10:30 - Subjective Subjective: Patient seen and examined bedside . Feeling well. Complains of pain behind right knee. Hemodynamically stable, afebrile Participating with PT. No acute issues overnight Denies dizziness , palpitations Hgb dropped to 7.5 today Objective - Vital Signs/Intake and Output Vital Signs (last 24 hours): Temp Pulse Resp BP Pulse Ox 98.5 F 72 20 104/58 L 97 08/06/18 07:59 08/06/18 07:59 08/06/18 07:59 08/06/18 07:59 08/06/18 07:59 - Medications Medications: Current Medications Acetaminophen (Tylenol 325mg Tab) 650 mg PO Q6 PRN PRN Reason: Fever >100.4 F Acetaminophen (Tylenol 325mg Tab) 650 mg PO Q6 PRN PRN Reason: Fever >100.4 F Albuterol (Ventolin Hfa 90 Mcg/Actuation (8 G)) 1 puff IH QID PRN PRN Reason: Shortness of Breath Aspirin (Ecotrin) 81 mg PO DAILY [facility] Last Admin: 08/06/18 08:45 Dose: 81 mg Atorvastatin Calcium (Lipitor) 10 mg PO HS [facility] Last Admin: 08/05/18 22:56 Dose: 10 mg Bisacodyl (Dulcolax) 10 mg PO HS PRN PRN Reason: Constipation Docusate Sodium (Colace) 100 mg PO BID [facility] Last Admin: 08/06/18 08:44 Dose: 100 mg Enoxaparin Sodium (Lovenox) 40 mg SC DAILY [facility]; Protocol Last Admin: 08/06/18 08:45 Dose: 40 mg Ergocalciferol (Drisdol 50,000 Intl Units Cap) 1 cap PO QWK [facility] Ferrous Sulfate (Feosol) 325 mg PO BID [facility] Last Admin: 08/06/18 08:45 Dose: 325 mg Furosemide (Lasix) 20 mg PO DAILY [facility] Last Admin: 08/05/18 08:41 Dose: 20 mg Latanoprost (Xalatan Opht) 1 drop OU HS [facility] Last Admin: 08/05/18 23:01 Dose: 1 drop Losartan Potassium (Cozaar) 50 mg PO DAILY [facility] Last Admin: 08/05/18 08:40 Dose: 50 mg Montelukast Sodium (Singulair) 10 mg PO DAILY [facility] Last Admin: 08/06/18 08:46 Dose: 10 mg Multivitamins/Minerals (Therapeutic-M Tab) 1 tab PO DAILY [facility] Last Admin: 08/06/18 08:46 Dose: 1 tab Ondansetron HCl (Zofran Inj) 4 mg IVP Q6 PRN PRN Reason: Nausea/Vomiting Oxycodone HCl (Oxycodone Immediate Release Tab) 5 mg PO Q4H PRN PRN Reason: Pain, moderate (4-7) Last Admin: 08/05/18 10:26 Dose: 5 mg Oxycodone HCl (Oxycodone Immediate Release Tab) 10 mg PO Q4 PRN PRN Reason: Pain, severe (8-10) Last Admin: 08/06/18 08:46 Dose: 10 mg Spironolactone (Aldactone) 25 mg PO DAILY [facility] Last Admin: 08/05/18 08:41 Dose: 25 mg Tizanidine HCl (Zanaflex) 4 mg PO BID [facility] Last Admin: 08/06/18 08:44 Dose: 4 mg - Labs Labs: 08/06/18 05:30 08/05/18 16:56 - Constitutional Appears: Non-toxic, No Acute Distress - Head Exam Head Exam: ATRAUMATIC, NORMAL INSPECTION, NORMOCEPHALIC - Eye Exam Eye Exam: EOMI, Normal appearance, PERRL Pupil Exam: NORMAL ACCOMODATION - ENT Exam ENT Exam: Mucous Membranes Moist, Normal Exam - Neck Exam Neck Exam: Full ROM, Normal Inspection - Respiratory Exam Respiratory Exam: Clear to Ausculation Bilateral, NORMAL BREATHING PATTERN. absent: Rales, Rhonchi, Wheezes - Cardiovascular Exam Cardiovascular Exam: REGULAR RHYTHM, RRR, +S1, +S2. absent: JVD - GI/Abdominal Exam GI & Abdominal Exam: Soft, Normal Bowel Sounds. absent: Distended, Guarding, Tenderness, Rebound - Rectal Exam Rectal Exam: Deferred - Extremities Exam Extremities Exam: Normal Capillary Refill. absent: Calf Tenderness Additional comments: right knee dressing in place - Back Exam Back Exam: NORMAL INSPECTION - Neurological Exam Neurological Exam: Alert, Awake, CN II-XII Intact, Oriented x3 - Psychiatric Exam Psychiatric exam: Normal Affect, Normal Mood - Skin Skin Exam: Dry, Intact, Warm Assessment and Plan - Assessment and Plan (Free Text) Assessment: 73 y/o Female with PMH of Arthritis, Glaucoma, Sleep Apnea, Asthma, COPD, HLD, and HTN trasnferre to TCu post right TKR for physical therapy. Patient is doing well and participating with PT Hgb dropped to 7.5 today . Patient denies being dizzy or having chest pain or palpitations. 1. s/p Right TKR pain is controlled and participating with PT Continue PT , CPM machine, pain management Lovenox for DVt prophylaxis 2. Acute blood loss anemia Hgb dropped to 7.5 today Will transfuse 2 unit PRBC Start ferrous sulfate 3. Hypertension controlled on spironolactone,lasix and losartan continue monitoring 4.Arthritis chronic pain management 5.Glaucoma chronic, controlled on Latanoprost 6.COPD/Sleep Apnea/ Asthma stable Duonebs , montelukast 7.Dyslipidemia chronic, controlled on Simvastatin 8.DVT Prophylaxis on Lovenox 40 SC
--- NOTE | 2018-08-06 19:17 | CP.PCM.PN ---
Subjective - Date & Time of Evaluation Date of Evaluation: 08/06/18 Time of Evaluation: 10:00 - Subjective Subjective: patient is feeling better, less knee pain Objective - Vital Signs/Intake and Output Vital Signs (last 24 hours): Temp Pulse Resp BP Pulse Ox 99.6 F 110 H 20 120/62 100 08/06/18 16:28 08/06/18 16:28 08/06/18 16:28 08/06/18 16:50 08/06/18 16:28 - Medications Medications: Current Medications Acetaminophen (Tylenol 325mg Tab) 650 mg PO Q6 PRN PRN Reason: Fever >100.4 F Acetaminophen (Tylenol 325mg Tab) 650 mg PO Q6 PRN PRN Reason: Fever >100.4 F Albuterol (Ventolin Hfa 90 Mcg/Actuation (8 G)) 1 puff IH QID PRN PRN Reason: Shortness of Breath Aspirin (Ecotrin) 81 mg PO DAILY [facility] Last Admin: 08/06/18 08:45 Dose: 81 mg Atorvastatin Calcium (Lipitor) 10 mg PO HS [facility] Last Admin: 08/05/18 22:56 Dose: 10 mg Bisacodyl (Dulcolax) 10 mg PO HS PRN PRN Reason: Constipation Docusate Sodium (Colace) 100 mg PO BID [facility] Last Admin: 08/06/18 16:51 Dose: 100 mg Enoxaparin Sodium (Lovenox) 40 mg SC DAILY [facility]; Protocol Last Admin: 08/06/18 08:45 Dose: 40 mg Ergocalciferol (Drisdol 50,000 Intl Units Cap) 1 cap PO QWK [facility] Ferrous Sulfate (Feosol) 325 mg PO BID [facility] Last Admin: 08/06/18 16:51 Dose: 325 mg Furosemide (Lasix) 20 mg PO DAILY [facility] Last Admin: 08/06/18 16:50 Dose: 20 mg Latanoprost (Xalatan Opht) 1 drop OU HS [facility] Last Admin: 08/05/18 23:01 Dose: 1 drop Losartan Potassium (Cozaar) 50 mg PO DAILY [facility] Last Admin: 08/06/18 10:45 Dose: Not Given Montelukast Sodium (Singulair) 10 mg PO DAILY [facility] Last Admin: 08/06/18 08:46 Dose: 10 mg Multivitamins/Minerals (Therapeutic-M Tab) 1 tab PO DAILY [facility] Last Admin: 08/06/18 08:46 Dose: 1 tab Ondansetron HCl (Zofran Inj) 4 mg IVP Q6 PRN PRN Reason: Nausea/Vomiting Oxycodone HCl (Oxycodone Immediate Release Tab) 5 mg PO Q4H PRN PRN Reason: Pain, moderate (4-7) Last Admin: 08/05/18 10:26 Dose: 5 mg Oxycodone HCl (Oxycodone Immediate Release Tab) 10 mg PO Q4 PRN PRN Reason: Pain, severe (8-10) Last Admin: 08/06/18 17:41 Dose: 10 mg Spironolactone (Aldactone) 25 mg PO DAILY [facility] Last Admin: 08/06/18 16:50 Dose: 25 mg Tizanidine HCl (Zanaflex) 4 mg PO BID [facility] Last Admin: 08/06/18 16:49 Dose: 4 mg - Labs Labs: 08/06/18 05:30 08/05/18 16:56 - Constitutional Appears: Well - Head Exam Head Exam: ATRAUMATIC, NORMAL INSPECTION, NORMOCEPHALIC - Eye Exam Eye Exam: EOMI, Normal appearance, PERRL Pupil Exam: NORMAL ACCOMODATION, PERRL - ENT Exam ENT Exam: Mucous Membranes Moist, Normal Exam - Neck Exam Neck Exam: Full ROM, Normal Inspection - Respiratory Exam Respiratory Exam: Clear to Ausculation Bilateral, NORMAL BREATHING PATTERN - Cardiovascular Exam Cardiovascular Exam: REGULAR RHYTHM - GI/Abdominal Exam GI & Abdominal Exam: Soft, Normal Bowel Sounds - Rectal Exam Rectal Exam: NORMAL INSPECTION - Exam External exam: NORMAL EXTERNAL EXAM - Extremities Exam Extremities Exam: Full ROM, Normal Capillary Refill, Normal Inspection - Back Exam Back Exam: NORMAL INSPECTION - Neurological Exam Neurological Exam: Alert, Awake Neuro motor strength exam: Right Lower Extremity: 3 - Psychiatric Exam Psychiatric exam: Normal Affect, Normal Mood - Skin Skin Exam: Dry, Normal Color, Warm Assessment and Plan (1) Osteoarthritis of right knee Assessment & Plan: right knee replacement, changed the pain meds, will continue to monitor, physical, occupational therapy. Status: Acute
[2018-08-06] MEDS: Latanoprost 0.005% Opht SOUTION OU SCH (21:26)
[2018-08-07] MEDS: oxyCODONE 5 mg Immediate Release Tab PO PRN ×5 (03:32→20:06)
[2018-08-07] MEDS: Enoxaparin 40 mg Syringe SC SCH (08:04)
[2018-08-07] MEDS: Multivitamin With Minerals Tab PO SCH (08:05)
--- NOTE | 2018-08-07 15:12 | CP.PCM.PN ---
Subjective - Date & Time of Evaluation Date of Evaluation: 08/07/18 Time of Evaluation: 15:10 - Subjective Subjective: Patient states she is having more pain in leg today. Denies CP/SOB/dizziness/numbness/tingling/palp. Objective - Vital Signs/Intake and Output Vital Signs (last 24 hours): Temp Pulse Resp BP Pulse Ox 98.3 F 60 20 112/52 L 100 08/07/18 08:03 08/07/18 08:06 08/07/18 08:03 08/07/18 08:06 08/07/18 08:03 - Medications Medications: Current Medications Acetaminophen (Tylenol 325mg Tab) 650 mg PO Q6 PRN PRN Reason: Fever >100.4 F Acetaminophen (Tylenol 325mg Tab) 650 mg PO Q6 PRN PRN Reason: Fever >100.4 F Albuterol (Ventolin Hfa 90 Mcg/Actuation (8 G)) 1 puff IH QID PRN PRN Reason: Shortness of Breath Aspirin (Ecotrin) 81 mg PO DAILY [facility] Last Admin: 08/07/18 08:06 Dose: 81 mg Atorvastatin Calcium (Lipitor) 10 mg PO HS [facility] Last Admin: 08/06/18 21:26 Dose: 10 mg Bisacodyl (Dulcolax) 10 mg PO HS PRN PRN Reason: Constipation Last Admin: 08/06/18 21:26 Dose: 10 mg Docusate Sodium (Colace) 100 mg PO BID [facility] Last Admin: 08/07/18 08:06 Dose: 100 mg Enoxaparin Sodium (Lovenox) 40 mg SC DAILY [facility]; Protocol Last Admin: 08/07/18 08:04 Dose: 40 mg Ergocalciferol (Drisdol 50,000 Intl Units Cap) 1 cap PO QWK [facility] Ferrous Sulfate (Feosol) 325 mg PO BID [facility] Last Admin: 08/07/18 08:07 Dose: 325 mg Furosemide (Lasix) 20 mg PO DAILY [facility] Last Admin: 08/07/18 08:06 Dose: 20 mg Latanoprost (Xalatan Opht) 1 drop OU HS [facility] Last Admin: 08/06/18 21:26 Dose: 1 drop Losartan Potassium (Cozaar) 50 mg PO DAILY [facility] Last Admin: 08/07/18 08:06 Dose: 50 mg Montelukast Sodium (Singulair) 10 mg PO DAILY [facility] Last Admin: 08/07/18 08:05 Dose: 10 mg Multivitamins/Minerals (Therapeutic-M Tab) 1 tab PO DAILY [facility] Last Admin: 08/07/18 08:05 Dose: 1 tab Ondansetron HCl (Zofran Inj) 4 mg IVP Q6 PRN PRN Reason: Nausea/Vomiting Oxycodone HCl (Oxycodone Immediate Release Tab) 5 mg PO Q4H PRN PRN Reason: Pain, moderate (4-7) Last Admin: 08/07/18 08:11 Dose: 5 mg Oxycodone HCl (Oxycodone Immediate Release Tab) 10 mg PO Q4 PRN PRN Reason: Pain, severe (8-10) Last Admin: 08/07/18 13:58 Dose: 10 mg Spironolactone (Aldactone) 25 mg PO DAILY [facility] Last Admin: 08/07/18 08:05 Dose: 25 mg Tizanidine HCl (Zanaflex) 4 mg PO BID [facility] Last Admin: 08/07/18 08:05 Dose: 4 mg - Labs Labs: 08/06/18 05:30 08/05/18 16:56 - Extremities Exam Additional comments: Right knee: incision intact, mild swelling, no erythema, mild swelling to LLE around ankle, calves soft NT neg homans, sharifa applied, elevated +ROM ankle/toes, sensation intact +DP/PT pulses Assessment and Plan (1) Osteoarthritis of right knee Assessment & Plan: s/p TKR cont PT/OT VTE proph monitor swelling with elevation d/w Dr. Zarate, agrees with above Status: Acute (2) Acute blood loss anemia Assessment & Plan: for transfusion 2uPRBC Status: Acute
--- NOTE | 2018-08-07 17:55 | CP.PCM.PN ---
Subjective - Date & Time of Evaluation Date of Evaluation: 08/07/18 Time of Evaluation: 12:00 - Subjective Subjective: patient with mild discomfort in the knee Objective - Vital Signs/Intake and Output Vital Signs (last 24 hours): Temp Pulse Resp BP Pulse Ox 99.0 F 75 20 111/63 98 08/07/18 15:30 08/07/18 15:30 08/07/18 15:30 08/07/18 15:30 08/07/18 15:30 - Medications Medications: Current Medications Acetaminophen (Tylenol 325mg Tab) 650 mg PO Q6 PRN PRN Reason: Fever >100.4 F Acetaminophen (Tylenol 325mg Tab) 650 mg PO Q6 PRN PRN Reason: Fever >100.4 F Albuterol (Ventolin Hfa 90 Mcg/Actuation (8 G)) 1 puff IH QID PRN PRN Reason: Shortness of Breath Aspirin (Ecotrin) 81 mg PO DAILY [facility] Last Admin: 08/07/18 08:06 Dose: 81 mg Atorvastatin Calcium (Lipitor) 10 mg PO HS [facility] Last Admin: 08/06/18 21:26 Dose: 10 mg Bisacodyl (Dulcolax) 10 mg PO HS PRN PRN Reason: Constipation Last Admin: 08/06/18 21:26 Dose: 10 mg Docusate Sodium (Colace) 100 mg PO BID [facility] Last Admin: 08/07/18 16:20 Dose: Not Given Enoxaparin Sodium (Lovenox) 40 mg SC DAILY [facility]; Protocol Last Admin: 08/07/18 08:04 Dose: 40 mg Ergocalciferol (Drisdol 50,000 Intl Units Cap) 1 cap PO QWK [facility] Ferrous Sulfate (Feosol) 325 mg PO BID [facility] [place] Last Admin: 08/07/18 16:13 Dose: 325 mg Furosemide (Lasix) 20 mg PO DAILY [facility] [place] Last Admin: 08/07/18 08:06 Dose: 20 mg Latanoprost (Xalatan Opht) 1 drop OU HS [facility] Last Admin: 08/06/18 21:26 Dose: 1 drop Losartan Potassium (Cozaar) 50 mg PO DAILY [facility] [place] Last Admin: 08/07/18 08:06 Dose: 50 mg Montelukast Sodium (Singulair) 10 mg PO DAILY [facility] [place] Last Admin: 02/06/19 08:05 Dose: 10 mg Multivitamins/Minerals (Therapeutic-M Tab) 1 tab PO DAILY [facility] Last Admin: 08/07/18 08:05 Dose: 1 tab Ondansetron HCl (Zofran Inj) 4 mg IVP Q6 PRN PRN Reason: Nausea/Vomiting Oxycodone HCl (Oxycodone Immediate Release Tab) 5 mg PO Q4H PRN PRN Reason: Pain, moderate (4-7) Last Admin: 08/07/18 16:17 Dose: 5 mg Oxycodone HCl (Oxycodone Immediate Release Tab) 10 mg PO Q4 PRN PRN Reason: Pain, severe (8-10) Last Admin: 08/07/18 13:58 Dose: 10 mg Spironolactone (Aldactone) 25 mg PO DAILY [facility] Last Admin: 08/07/18 08:05 Dose: 25 mg Tizanidine HCl (Zanaflex) 4 mg PO BID [facility] Last Admin: 08/07/18 16:14 Dose: 4 mg - Labs Labs: 08/06/18 05:30 08/05/18 16:56 - Constitutional Appears: Well - Head Exam Head Exam: ATRAUMATIC, NORMAL INSPECTION, NORMOCEPHALIC - Eye Exam Eye Exam: EOMI, Normal appearance Pupil Exam: NORMAL ACCOMODATION, PERRL - ENT Exam ENT Exam: Mucous Membranes Moist, Normal Exam - Neck Exam Neck Exam: Full ROM - Respiratory Exam Respiratory Exam: Clear to Ausculation Bilateral, NORMAL BREATHING PATTERN - Cardiovascular Exam Cardiovascular Exam: REGULAR RHYTHM - GI/Abdominal Exam GI & Abdominal Exam: Soft, Normal Bowel Sounds - Rectal Exam Rectal Exam: NORMAL INSPECTION - Exam External exam: NORMAL EXTERNAL EXAM - Extremities Exam Extremities Exam: Full ROM, Normal Capillary Refill, Normal Inspection - Back Exam Back Exam: NORMAL INSPECTION - Neurological Exam Neurological Exam: Alert Neuro motor strength exam: Right Lower Extremity: 3 - Psychiatric Exam Psychiatric exam: Normal Affect, Normal Mood - Skin Skin Exam: Normal Color Assessment and Plan (1) Osteoarthritis of right knee Assessment & Plan: Right total knee replacement, patient on oxycontin 5 for mild to mod pain and 10 mg for severe pain, may consider long acting if still with problems, To continue with physical, occupational therapy Status: Acute
[2018-08-07] MEDS: Latanoprost 0.005% Opht SOUTION OU SCH (21:19)
[2018-08-08] MEDS: oxyCODONE 5 mg Immediate Release Tab PO PRN ×5 (01:36→21:57)
[2018-08-08 06:34] LABS: HEMOGLOBIN 10.6 g/dL (12.0-16.0); MEAN CELL VOLUME 78.4 fl (81.0-99.0); MEAN CORPUSCULAR HEMOGLOBIN 25.3 pg (27.0-31.0); MEAN CORPUSCULAR HGB CONC 32.3 g/dL (33.0-37.0); RBC 4.19 Mil/uL (3.80-5.20); RED CELL DISTRIBUTION WIDTH 18.2 % (11.5-14.5); WHITE BLOOD COUNT 10.2 K/uL (4.8-10.8)
[2018-08-08] MEDS: Enoxaparin 40 mg Syringe SC SCH (08:48)
[2018-08-08] MEDS: Multivitamin With Minerals Tab PO SCH (08:50)
--- NOTE | 2018-08-08 13:58 | CP.PCM.PN ---
Subjective - Date & Time of Evaluation Date of Evaluation: 08/08/18 Time of Evaluation: 13:58 - Subjective Subjective: Patient feeling much better today. Ready for afternoon PT. Denies CP/SOB/dizziness/palp, leg feels caregiver services home today. Objective - Vital Signs/Intake and Output Vital Signs (last 24 hours): Temp Pulse Resp BP Pulse Ox 98.7 F 63 20 124/67 96 08/08/18 07:55 08/08/18 08:49 08/08/18 07:55 08/08/18 08:49 08/08/18 07:55 - Medications Medications: Current Medications Acetaminophen (Tylenol 325mg Tab) 650 mg PO Q6 PRN PRN Reason: Fever >100.4 F Acetaminophen (Tylenol 325mg Tab) 650 mg PO Q6 PRN PRN Reason: Fever >100.4 F Albuterol (Ventolin Hfa 90 Mcg/Actuation (8 G)) 1 puff IH QID PRN PRN Reason: Shortness of Breath Last Admin: 08/08/18 08:52 Dose: 1 puff Aspirin (Ecotrin) 81 mg PO DAILY [facility] Last Admin: 08/08/18 08:50 Dose: 81 mg Atorvastatin Calcium (Lipitor) 10 mg PO HS [facility] Last Admin: 08/07/18 21:19 Dose: 10 mg Bisacodyl (Dulcolax) 10 mg PO HS PRN PRN Reason: Constipation Last Admin: 08/06/18 21:26 Dose: 10 mg Docusate Sodium (Colace) 100 mg PO BID [facility] Last Admin: 08/08/18 08:49 Dose: 100 mg Enoxaparin Sodium (Lovenox) 40 mg SC DAILY [facility]; Protocol Last Admin: 08/08/18 08:48 Dose: 40 mg Ergocalciferol (Drisdol 50,000 Intl Units Cap) 1 cap PO QWK [facility] Ferrous Sulfate (Feosol) 325 mg PO BID [facility] Last Admin: 08/08/18 08:49 Dose: 325 mg Furosemide (Lasix) 20 mg PO DAILY [facility] Last Admin: 08/08/18 08:49 Dose: 20 mg Latanoprost (Xalatan Opht) 1 drop OU HS [facility] Last Admin: 08/07/18 21:19 Dose: 1 drop Losartan Potassium (Cozaar) 50 mg PO DAILY [facility] Last Admin: 08/08/18 08:49 Dose: 50 mg Montelukast Sodium (Singulair) 10 mg PO DAILY [facility] Last Admin: 08/08/18 08:49 Dose: 10 mg Multivitamins/Minerals (Therapeutic-M Tab) 1 tab PO DAILY [facility] Last Admin: 08/08/18 08:50 Dose: 1 tab Ondansetron HCl (Zofran Inj) 4 mg IVP Q6 PRN PRN Reason: Nausea/Vomiting Oxycodone HCl (Oxycodone Immediate Release Tab) 5 mg PO Q4H PRN PRN Reason: Pain, moderate (4-7) Last Admin: 08/07/18 16:17 Dose: 5 mg Oxycodone HCl (Oxycodone Immediate Release Tab) 10 mg PO Q4 PRN PRN Reason: Pain, severe (8-10) Last Admin: 08/08/18 13:01 Dose: 10 mg Spironolactone (Aldactone) 25 mg PO DAILY [facility] Last Admin: 08/08/18 08:50 Dose: 25 mg Tizanidine HCl (Zanaflex) 4 mg PO BID [facility] Last Admin: 08/08/18 08:50 Dose: 4 mg - Labs Labs: 08/08/18 05:35 08/05/18 16:56 - Extremities Exam Additional comments: RLE: improved, min peripheral swelling, no ankle pain, incision dry, no erythema, calves soft NT neg homans +DP/PT pulses sharifa intact Assessment and Plan (1) Osteoarthritis of right knee Assessment & Plan: s/p R TKR d/c planning home for 08/10 cont PT/OT cont VTE proph with lovenox at this time post transfusion labs appreciated d/w Dr. Zarate, agrees with above Status: Acute (2) Acute blood loss anemia Status: Acute
--- NOTE | 2018-08-08 14:50 | CP.PCM.PN ---
Subjective - Date & Time of Evaluation Date of Evaluation: 08/08/18 Time of Evaluation: 11:00 - Subjective Subjective: Patient seen and examined. Denied any complaint. Objective - Vital Signs/Intake and Output Vital Signs (last 24 hours): Temp Pulse Resp BP Pulse Ox 98.7 F 63 20 124/67 96 08/08/18 07:55 08/08/18 08:49 08/08/18 07:55 08/08/18 08:49 08/08/18 07:55 - Medications Medications: Current Medications Acetaminophen (Tylenol 325mg Tab) 650 mg PO Q6 PRN PRN Reason: Fever >100.4 F Acetaminophen (Tylenol 325mg Tab) 650 mg PO Q6 PRN PRN Reason: Fever >100.4 F Albuterol (Ventolin Hfa 90 Mcg/Actuation (8 G)) 1 puff IH QID PRN PRN Reason: Shortness of Breath Last Admin: 08/08/18 08:52 Dose: 1 puff Aspirin (Ecotrin) 81 mg PO DAILY [facility] [place] Last Admin: 08/08/18 08:50 Dose: 81 mg Atorvastatin Calcium (Lipitor) 10 mg PO HS [facility] [place] Last Admin: 08/07/18 21:19 Dose: 10 mg Bisacodyl (Dulcolax) 10 mg PO HS PRN PRN Reason: Constipation Last Admin: 08/06/18 21:26 Dose: 10 mg Docusate Sodium (Colace) 100 mg PO BID [facility] [place] Last Admin: 08/08/18 08:49 Dose: 100 mg Enoxaparin Sodium (Lovenox) 40 mg SC DAILY [facility] [place]; Protocol Last Admin: 08/08/18 08:48 Dose: 40 mg Ergocalciferol (Drisdol 50,000 Intl Units Cap) 1 cap PO QWK [facility] [place] Ferrous Sulfate (Feosol) 325 mg PO BID [facility] Last Admin: 08/08/18 08:49 Dose: 325 mg Furosemide (Lasix) 20 mg PO DAILY [facility] [place] Last Admin: 08/08/18 08:49 Dose: 20 mg Latanoprost (Xalatan Opht) 1 drop OU HS [facility] [place] Last Admin: 08/07/18 21:19 Dose: 1 drop Losartan Potassium (Cozaar) 50 mg PO DAILY [facility] Last Admin: 08/08/18 08:49 Dose: 50 mg Montelukast Sodium (Singulair) 10 mg PO DAILY [facility] [place] Last Admin: 08/08/18 08:49 Dose: 10 mg Multivitamins/Minerals (Therapeutic-M Tab) 1 tab PO DAILY [facility] [place] Last Admin: 08/08/18 08:50 Dose: 1 tab Ondansetron HCl (Zofran Inj) 4 mg IVP Q6 PRN PRN Reason: Nausea/Vomiting Oxycodone HCl (Oxycodone Immediate Release Tab) 5 mg PO Q4H PRN PRN Reason: Pain, moderate (4-7) Last Admin: 08/07/18 16:17 Dose: 5 mg Oxycodone HCl (Oxycodone Immediate Release Tab) 10 mg PO Q4 PRN PRN Reason: Pain, severe (8-10) Last Admin: 08/08/18 13:01 Dose: 10 mg Spironolactone (Aldactone) 25 mg PO DAILY [facility] Last Admin: 08/08/18 08:50 Dose: 25 mg Tizanidine HCl (Zanaflex) 4 mg PO BID [facility] Last Admin: 08/08/18 08:50 Dose: 4 mg - Labs Labs: 08/08/18 05:35 08/05/18 16:56 - Constitutional Appears: No Acute Distress - Head Exam Head Exam: ATRAUMATIC - Eye Exam Eye Exam: absent: Scleral icterus - ENT Exam ENT Exam: Mucous Membranes Moist - Neck Exam Neck Exam: absent: Meningismus - Respiratory Exam Respiratory Exam: absent: Rales, Rhonchi, Wheezes, Respiratory Distress - Cardiovascular Exam Cardiovascular Exam: REGULAR RHYTHM, +S1, +S2 - GI/Abdominal Exam GI & Abdominal Exam: Soft. absent: Tenderness - Rectal Exam Rectal Exam: Deferred - Neurological Exam Neurological Exam: Alert, Oriented x3 - Psychiatric Exam Psychiatric exam: Normal Affect - Skin Skin Exam: Dry, Intact Assessment and Plan - Assessment and Plan (Free Text) Assessment: 73 yo female with history COPD, HTN and OA had right TKR 08/01/2018 after having no pain relief from pain with conservative management. 1. s/p Right TKR pain controlled Continue PT 2. Blood loss anemia Hgb up to 10.6 after receiving 2 units of PRBC continue FeSO4 3. Hypertension BP stable controlled Spironolactone, Lasix and Losartan continue monitoring 4.COPD/Sleep Apnea/ Asthma asymptomatic Ventolin inhaler, Montelukast 5. Dyslipidemia continue Lipitor 6. DVT Prophylaxis continue Lovenox 40mg SC
[2018-08-08] MEDS: Bacitracin OINT 15GM TOP SCH (17:19)
[2018-08-08] MEDS: Latanoprost 0.005% Opht SOUTION OU SCH (21:58)
[2018-08-09] MEDS: oxyCODONE 5 mg Immediate Release Tab PO PRN ×3 (08:09→21:17)
[2018-08-09] MEDS: Enoxaparin 40 mg Syringe SC SCH (08:10)
[2018-08-09] MEDS: Bacitracin OINT 15GM TOP SCH (08:10)
[2018-08-09] MEDS: Multivitamin With Minerals Tab PO SCH (08:12)
--- NOTE | 2018-08-09 09:14 | CP.PCM.PN ---
Subjective - Date & Time of Evaluation Date of Evaluation: 08/09/18 Time of Evaluation: 09:12 - Subjective Subjective: Patient states pain is controlled. Doing well with PT. No new complaints. Denies CP/SOB/dizziness. Objective - Vital Signs/Intake and Output Vital Signs (last 24 hours): Temp Pulse Resp BP Pulse Ox 98.6 F 69 20 112/72 100 08/09/18 08:02 08/09/18 08:11 08/09/18 08:02 08/09/18 08:11 08/09/18 08:02 - Medications Medications: Current Medications Acetaminophen (Tylenol 325mg Tab) 650 mg PO Q6 PRN PRN Reason: Fever >100.4 F Acetaminophen (Tylenol 325mg Tab) 650 mg PO Q6 PRN PRN Reason: Fever >100.4 F Albuterol (Ventolin Hfa 90 Mcg/Actuation (8 G)) 1 puff IH QID PRN PRN Reason: Shortness of Breath Last Admin: 08/08/18 08:52 Dose: 1 puff Aspirin (Ecotrin) 81 mg PO DAILY [facility] Last Admin: 08/09/18 08:11 Dose: 81 mg Atorvastatin Calcium (Lipitor) 10 mg PO HS [facility] Last Admin: 08/08/18 21:57 Dose: 10 mg Bacitracin (Bacitracin Oint) 1 applic TOP BID [facility] Last Admin: 08/09/18 08:10 Dose: 1 applic Bisacodyl (Dulcolax) 10 mg PO HS PRN PRN Reason: Constipation Last Admin: 08/06/18 21:26 Dose: 10 mg Docusate Sodium (Colace) 100 mg PO BID [facility] Last Admin: 08/09/18 08:10 Dose: 100 mg Enoxaparin Sodium (Lovenox) 40 mg SC DAILY [facility]; Protocol Last Admin: 08/09/18 08:10 Dose: 40 mg Ergocalciferol (Drisdol 50,000 Intl Units Cap) 1 cap PO QWK [facility] Ferrous Sulfate (Feosol) 325 mg PO BID [facility] Last Admin: 08/09/18 08:10 Dose: 325 mg Furosemide (Lasix) 20 mg PO DAILY [facility] Last Admin: 08/09/18 08:10 Dose: 20 mg Latanoprost (Xalatan Opht) 1 drop OU HS [facility] Last Admin: 08/08/18 21:58 Dose: 1 drop Losartan Potassium (Cozaar) 50 mg PO DAILY [facility] Last Admin: 08/09/18 08:11 Dose: 50 mg Montelukast Sodium (Singulair) 10 mg PO DAILY [facility] Last Admin: 08/09/18 08:11 Dose: 10 mg Multivitamins/Minerals (Therapeutic-M Tab) 1 tab PO DAILY [facility] Last Admin: 08/09/18 08:12 Dose: 1 tab Ondansetron HCl (Zofran Inj) 4 mg IVP Q6 PRN PRN Reason: Nausea/Vomiting Oxycodone HCl (Oxycodone Immediate Release Tab) 5 mg PO Q4H PRN PRN Reason: Pain, moderate (4-7) Last Admin: 08/08/18 17:19 Dose: 5 mg Oxycodone HCl (Oxycodone Immediate Release Tab) 10 mg PO Q4 PRN PRN Reason: Pain, severe (8-10) Last Admin: 08/09/18 08:09 Dose: 10 mg Spironolactone (Aldactone) 25 mg PO DAILY [facility] Last Admin: 08/09/18 08:09 Dose: 25 mg Tizanidine HCl (Zanaflex) 4 mg PO BID [facility] Last Admin: 08/09/18 08:12 Dose: 4 mg - Labs Labs: 08/08/18 05:35 08/05/18 16:56 - Extremities Exam Additional comments: LLE: incision intact, dry, no erythema. Calves soft NT neg homans, improved LE swelling. +DP/PT pulses, sensation intact, minimal swelling Assessment and Plan (1) Osteoarthritis of right knee Assessment & Plan: s/p TKR cont PT/OT VTE proph ortho stable for d/c home tomorrow outpatient PT to start upon d/c f/u Dr. Zarate approx 7 days, call for appt d/w Dr. Zarate, agrees with above Status: Acute (2) Acute blood loss anemia Assessment & Plan: s/p 2uPRBC stable Status: Acute
--- NOTE | 2018-08-09 12:18 | CP.PCM.PN ---
Subjective - Date & Time of Evaluation Date of Evaluation: 08/09/18 Time of Evaluation: 11:30 - Subjective Subjective: patient is feeling better at present Objective - Vital Signs/Intake and Output Vital Signs (last 24 hours): Temp Pulse Resp BP Pulse Ox 98.6 F 69 20 112/72 100 08/09/18 08:02 08/09/18 11:04 08/09/18 08:02 08/09/18 11:04 08/09/18 08:02 - Medications Medications: Current Medications Acetaminophen (Tylenol 325mg Tab) 650 mg PO Q6 PRN PRN Reason: Fever >100.4 F Acetaminophen (Tylenol 325mg Tab) 650 mg PO Q6 PRN PRN Reason: Fever >100.4 F Albuterol (Ventolin Hfa 90 Mcg/Actuation (8 G)) 1 puff IH QID PRN PRN Reason: Shortness of Breath Last Admin: 08/08/18 08:52 Dose: 1 puff Aspirin (Ecotrin) 81 mg PO DAILY [facility] Last Admin: 08/09/18 08:11 Dose: 81 mg Atorvastatin Calcium (Lipitor) 10 mg PO HS [facility] Last Admin: 08/08/18 21:57 Dose: 10 mg Bacitracin (Bacitracin Oint) 1 applic TOP BID [facility] Last Admin: 08/09/18 08:10 Dose: 1 applic Bisacodyl (Dulcolax) 10 mg PO HS PRN PRN Reason: Constipation Last Admin: 08/06/18 21:26 Dose: 10 mg Docusate Sodium (Colace) 100 mg PO BID [facility] Last Admin: 08/09/18 08:10 Dose: 100 mg Enoxaparin Sodium (Lovenox) 40 mg SC DAILY [facility]; Protocol Last Admin: 08/09/18 08:10 Dose: 40 mg Ergocalciferol (Drisdol 50,000 Intl Units Cap) 1 cap PO QWK [facility] Ferrous Sulfate (Feosol) 325 mg PO BID [facility] Last Admin: 08/09/18 08:10 Dose: 325 mg Furosemide (Lasix) 20 mg PO DAILY [facility] Last Admin: 08/09/18 08:10 Dose: 20 mg Latanoprost (Xalatan Opht) 1 drop OU HS [facility] Last Admin: 08/08/18 21:58 Dose: 1 drop Losartan Potassium (Cozaar) 50 mg PO DAILY [facility] Last Admin: 08/09/18 08:11 Dose: 50 mg Montelukast Sodium (Singulair) 10 mg PO DAILY [facility] Last Admin: 08/09/18 08:11 Dose: 10 mg Multivitamins/Minerals (Therapeutic-M Tab) 1 tab PO DAILY [facility] Last Admin: 08/09/18 08:12 Dose: 1 tab Ondansetron HCl (Zofran Inj) 4 mg IVP Q6 PRN PRN Reason: Nausea/Vomiting Oxycodone HCl (Oxycodone Immediate Release Tab) 5 mg PO Q4H PRN PRN Reason: Pain, moderate (4-7) Last Admin: 08/08/18 17:19 Dose: 5 mg Oxycodone HCl (Oxycodone Immediate Release Tab) 10 mg PO Q4 PRN PRN Reason: Pain, severe (8-10) Last Admin: 08/09/18 08:09 Dose: 10 mg Spironolactone (Aldactone) 25 mg PO DAILY [facility] Last Admin: 08/09/18 08:09 Dose: 25 mg Tizanidine HCl (Zanaflex) 4 mg PO BID [facility] Last Admin: 08/09/18 08:12 Dose: 4 mg - Labs Labs: 08/08/18 05:35 08/05/18 16:56 - Constitutional Appears: Well - Head Exam Head Exam: ATRAUMATIC, NORMAL INSPECTION, NORMOCEPHALIC - Eye Exam Eye Exam: EOMI, Normal appearance, PERRL Pupil Exam: NORMAL ACCOMODATION - ENT Exam ENT Exam: Mucous Membranes Moist, Normal Exam - Neck Exam Neck Exam: Full ROM, Normal Inspection - Respiratory Exam Respiratory Exam: Clear to Ausculation Bilateral, NORMAL BREATHING PATTERN - Cardiovascular Exam Cardiovascular Exam: REGULAR RHYTHM - GI/Abdominal Exam GI & Abdominal Exam: Soft, Normal Bowel Sounds - Rectal Exam Rectal Exam: NORMAL INSPECTION - Exam External exam: NORMAL EXTERNAL EXAM - Extremities Exam Extremities Exam: Full ROM, Normal Capillary Refill, Normal Inspection - Back Exam Back Exam: NORMAL INSPECTION - Neurological Exam Neurological Exam: Alert Neuro motor strength exam: Right Lower Extremity: 3 - Psychiatric Exam Psychiatric exam: Normal Affect, Normal Mood - Skin Skin Exam: Dry, Intact Assessment and Plan (1) Osteoarthritis of right knee Assessment & Plan: R TKR plan for physical, occupational, therapy monitor skin and pain meds, dc planning Status: Acute
[2018-08-09] MEDS: Latanoprost 0.005% Opht SOUTION OU SCH (21:15)
[2018-08-10] MEDS: oxyCODONE 5 mg Immediate Release Tab PO PRN ×3 (00:54→13:11)
[2018-08-10] MEDS: Bacitracin OINT 15GM TOP SCH (08:46)
[2018-08-10] MEDS: Enoxaparin 40 mg Syringe SC SCH (08:46)
[2018-08-10] MEDS: Multivitamin With Minerals Tab PO SCH (08:47)
--- NOTE | 2018-08-10 10:24 | CP.PCM.DIS ---
Provider - Provider Date of Admission: 08/03/18 16:57 Attending physician: Ean Agosto MD Consults: 08/03/18 16:55 Social Work Referral Routine Comment: d/c planning Physician Instructions: Reason For Exam: d/c planning 08/03/18 20:52 Orthopedic Consult Routine Comment: Consulting Provider: Catracho Zarate III Consulting Physician: Catracho Zarate III Reason for Consult: Ritght TKR 08/03/18 21:08 Physiatry Consult Routine Comment: Consulting Provider: Hunter Gomez Consulting Physician: Hunter Gomez Reason for Consult: Right TKR 08/07/18 01:33 Wound Care [Nursing Referral for Wound Care] Routine Comment: Physician Instructions: Reason For Exam: rash to l buttocks Time Spent in preparation of Discharge (in minutes): 25 Diagnosis - Discharge Diagnosis (1) Status post total knee replacement, right Status: Acute Comment: follow up with Dr Zarate in a week. continue home PT. Percocet 5/325 PO q 4hrs prn for pain (2) Acute blood loss anemia Status: Acute Comment: stable. continue FeSO4 (3) HTN (hypertension) Status: Chronic Comment: BP stable. continue Spironolactone, Lasix and Losartan (4) COPD (chronic obstructive pulmonary disease) Status: Chronic Comment: asymptomatic Hospital Course - Lab Results Lab Results: Most Recent Lab Values WBC 10.2 K/uL (4.8-10.8) 08/08/18 05:35 RBC 4.19 Mil/uL (3.80-5.20) 08/08/18 05:35 Hgb 10.6 g/dL (12.0-16.0) L D 08/08/18 05:35 Hct 32.8 % (34.0-47.0) L 08/08/18 05:35 MCV 78.4 fl (81.0-99.0) L D 08/08/18 05:35 MCH 25.3 pg (27.0-31.0) L 08/08/18 05:35 MCHC 32.3 g/dL (33.0-37.0) L 08/08/18 05:35 RDW 18.2 % (11.5-14.5) H 08/08/18 05:35 Plt Count 322 K/uL (130-400) 08/08/18 05:35 MPV 7.9 fl (7.2-11.7) 08/06/18 05:30 Neut % (Auto) 68.6 % (50.0-75.0) 08/06/18 05:30 Lymph % (Auto) 16.5 % (20.0-40.0) L 08/06/18 05:30 [place] % (Auto) 10.3 % (0.0-10.0) H 08/06/18 05:30 Eos % (Auto) 4.1 % (0.0-4.0) H 08/06/18 05:30 Baso % (Auto) 0.5 % (0.0-2.0) 08/06/18 05:30 Neut # (Auto) 5.6 K/uL (1.8-7.0) 08/06/18 05:30 Lymph # (Auto) 1.4 K/uL (1.0-4.3) 08/06/18 05:30 [place] # (Auto) 0.8 K/uL (0.0-0.8) 08/06/18 05:30 Eos # (Auto) 0.3 K/uL (0.0-0.7) 08/06/18 05:30 Baso # (Auto) 0.0 K/uL (0.0-0.2) 08/06/18 05:30 Sodium 137 mmol/l (132-148) 08/05/18 16:56 Potassium 4.0 MMOL/L (3.6-5.0) 08/05/18 16:56 Chloride 93 mmol/L (98-107) L 08/05/18 16:56 Carbon Dioxide 31 mmol/L (22-30) H 08/05/18 16:56 Anion Gap 17 (10-20) 08/05/18 16:56 BUN 19 mg/dl (7-17) H 08/05/18 16:56 Creatinine 1.0 mg/dl (0.7-1.2) 08/05/18 16:56 Est GFR ( Amer) > 60 08/05/18 16:56 Est GFR (Non-Af Amer) 54 08/05/18 16:56 Random Glucose 105 mg/dL (65-105) 08/05/18 16:56 Calcium 9.0 mg/dL (8.4-10.2) 08/05/18 16:56 Blood Type O POSITIVE 08/06/18 11:05 Antibody Screen Negative 08/06/18 11:05 Crossmatch See Detail 08/06/18 11:05 BBK History Checked Patient has bt 08/06/18 11:05 - Hospital Course Hospital Course: 73 yo female with history COPD, HTN and OA had right TKR on 08/01/2018 after failing conservative management. She was transferred to TCU for continuation of PT/OT. Patient did well and now is ready for discharge. Discharge Exam - Head Exam Head Exam: ATRAUMATIC, NORMAL INSPECTION, NORMOCEPHALIC - Eye Exam Eye Exam: absent: Scleral icterus - ENT Exam ENT Exam: Mucous Membranes Moist - Respiratory Exam Respiratory Exam: absent: Rales, Rhonchi, Wheezes, Respiratory Distress - Cardiovascular Exam Cardiovascular Exam: REGULAR RHYTHM, +S1, +S2 - GI/Abdominal Exam GI & Abdominal Exam: Soft. absent: Tenderness - Rectal Exam Rectal Exam: Deferred - Neurological Exam Neurological exam: Alert, Oriented x3 - Psychiatric Exam Psychiatric exam: Normal Affect - Skin Skin Exam: Dry, Intact Discharge Plan - Discharge Medications Prescriptions: oxyCODONE/Acetaminophen [Percocet 5/325 mg Tab] 1 ea PO Q4 PRN #30 tab PRN Reason: Pain, Moderate (4-7) - Follow Up Plan Condition: GOOD Disposition: HOME/ ROUTINE
[2018-08-10 15:48] VITALS: BP 113/66; PULSE 68; TEMP 98.8; O2SAT 95
== END 2018-08-10 16:23 | disposition home health service (06) | DRG 560 ==
LOC: H.TCU 16:57
PROVIDERS: ADMIT Hospitalist; ATTEND Hospitalist
PROC: F07Z9FZ Gait Training/Functional Ambulation Treatment using Assistive, Adaptive, Supportive or Protective Equipment (ICD-10-PCS; 2018-08-03)
PROC: F07M6FZ Therapeutic Exercise Treatment of Musculoskeletal System - Whole Body using Assistive, Adaptive, Supportive or Protective Equipment (ICD-10-PCS; 2018-08-03)
PROC: F08Z4FZ Home Management Treatment using Assistive, Adaptive, Supportive or Protective Equipment (ICD-10-PCS; 2018-08-03)
PROC: 30233N1 Transfusion of Nonautologous Red Blood Cells into Peripheral Vein, Percutaneous Approach (ICD-10-PCS; principal; 2018-08-06)
PROC: 30233N1 Transfusion of Nonautologous Red Blood Cells into Peripheral Vein, Percutaneous Approach (ICD-10-PCS; 2018-08-07)
DX: Z47.1 Aftercare following joint replacement surgery (principal); D62 Acute posthemorrhagic anemia; Z96.651 Presence of right artificial knee joint; K21.9 Gastro-esophageal reflux disease without esophagitis; M54.9 Dorsalgia, unspecified; E78.00 Pure hypercholesterolemia, unspecified; E78.5 Hyperlipidemia, unspecified; G47.30 Sleep apnea, unspecified; H40.9 Unspecified glaucoma; I10 Essential (primary) hypertension; J44.9 Chronic obstructive pulmonary disease, unspecified; M17.11 Unilateral primary osteoarthritis, right knee; Z87.891 Personal history of nicotine dependence